=== PATIENT | female | born 1955 | race Caucasian/White ===

== ENCOUNTER → 2020-02-24 11:03 | Outpatient (REF) | payer MEDICARE, SELFPAY ==
--- NOTE | 2020-02-24 12:23 | ECG_ITS ---
Test Reason : PREPROC EXAM Blood Pressure : / mmHG Vent. Rate : 073 BPM Atrial Rate : 073 BPM P-R Int : 182 ms QRS Dur : 088 ms QT Int : 412 ms P-R-T Axes : 060 -41 041 degrees QTc Int : 453 ms Normal sinus rhythm Left anterior fascicular block Abnormal ECG No previous ECGs available Referred By: Thuan Mario Electronically Signed By:FABBY RODRIGUEZ MD
== END ==
LOC: HO.CARD 11:03
PROVIDERS: PCP Internal Medicine; Visit Provider Orthopaedic Surgery
DX: Z01.812 Encounter for preprocedural laboratory examination (principal); Z01.810 Encounter for preprocedural cardiovascular examination
CPT/HCPCS: 36415; 80048; 85025; 93005

== ENCOUNTER 2020-03-26 10:05 | Outpatient (REF) | payer MEDICARE, SELFPAY | END 2020-03-26 10:06 | disposition home or self-care (01) | LOC: HO.LAB 10:05 | PROVIDERS: PCP Internal Medicine; Visit Provider Physician Assistant | DX: Z01.818 Encounter for other preprocedural examination (principal); M17.11 Unilateral primary osteoarthritis, right knee | CPT/HCPCS: 99212 ==

== ENCOUNTER 2020-03-30 05:15 | Inpatient (IN) | payer MEDICARE, SELFPAY ==
[2020-03-15 11:08] VITALS: BMI 37.8
--- NOTE | 2020-03-16 08:36 | P.CONAN_ITS ---
Documented by User: Anya Harrisney 03/30/20 08:33 HPI - Anesthesia Eval Consult details Narrative: 64F for L TKA PCP cleared Reports ?rxn to anesthesia following colonoscopy in 2009. Pupils were slow to react to light post-op. Treated with prednisone. Resolved without further occur rence. Nurse navigator requesting information from [facility]. No anesthetic issues with subsequent surgeries Anesthetic record from [facility] 2010 reviewed. Patient received Sevo, Versed, Fentanyl, Lido, Propofol, Rocuronium, Dec/Zofran, Phenylephrine without issue. [facility] Past Medical History Medical History Arthritis Heart murmur History of anesthesia problem History of depression Hypertension Psoriasis Psoriatic arthritis Surgical History Surgical History History of arthroscopy of right shoulder Hx of section Hx of cholecystectomy Hx of laparoscopy History of Problems with Anesthesia: Yes (See HPI) Social History Social History Are you a primary gericare aide to a significant other at home: No Do you presently have visiting nurse or other home services: No Smoking Status: Never smoker Second Hand Smoke Exposure: No Use of substances other than those prescribed or required for medical reasons: No Have you been hit, kicked, punched, or otherwise hurt by someone within the past year? If so, by whom?: No Advance Directives: No Advance Directives Information Provided: No Advance Directives on File: No Recently lost weight without trying: No Current occupational status: retired Narrative Narrative: No recent illness. >4 mets. Activity only limited to pain. Meds Allergies Allergy/AdvReac Type Severity Reaction Status Date / Time penicillin Allergy Unknown Hives Uncoded 02/24/20 14:27 sulfa Allergy Unknown Hives Uncoded 02/24/20 14:27 Home Medications Medication Instructions Recorded Confirmed Type calcipotriene 1 applic TOPICAL BID 03/15/20 03/15/20 History etanercept [Enbrel SureClick] 50 mg SUBCUT 2XW 03/15/20 03/16/20 History hydrochlorothiazide 1 tab PO DAILY 03/15/20 03/15/20 History lisinopril 1 tab PO DAILY 03/15/20 03/15/20 History verapamil 2 cap PO BEDTIME 03/15/20 03/16/20 History Exam Exam Date and Time: March 16, 2020 0836 Height,Weight and Vital Signs: Height 5 ft 6 in Weight 106.141 kg Pertinent Lab Results Pertinent Lab Results: Laboratory Tests 02/24/20 02/24/20 12:30 12:30 WBC 6.9 Hgb 11.8 L Hct 37.7 Plt Count 404 H Sodium 137 Potassium 3.9 Chloride 100 Carbon Dioxide 25 BUN 13 Creatinine 0.75 Narrative Narrative: EKG 02/24/20: Normal sinus rhythm Left anterior fascicular block Airway Mallampati Class: III (Small mouth) TM Dist: >3cm Neck ROM: Full Loose/Missing/Broken Teeth: Yes (Left lower molar implant) Heart: RRR Lungs: CTAB Assessment and Plan Assessment Anesthesia Assessment: Anesthesia Plan Discussed (Nerve block with GA vs MAC based on PMHx) and PAT Visit Documented by User: Jose Dumont MD 03/30/20 09:08 [facility] Past Medical History Medical History Arthritis Heart murmur History of anesthesia problem History of depression Hypertension Psoriasis Psoriatic arthritis Surgical History Surgical History History of arthroscopy of right shoulder Hx of section Hx of cholecystectomy Hx of laparoscopy Social History Social History Are you a primary gericare aide to a significant other at home: No Do you presently have visiting nurse or other home services: No Smoking Status: Never smoker Second Hand Smoke Exposure: No Use of substances other than those prescribed or required for medical reasons: No Have you been hit, kicked, punched, or otherwise hurt by someone within the past year? If so, by whom?: No Advance Directives: No Advance Directives Information Provided: No Advance Directives on File: No Recently lost weight without trying: No Current occupational status: retired Meds Allergies Allergy/AdvReac Type Severity Reaction Status Date / Time penicillin Allergy Unknown Hives Uncoded 02/24/20 14:27 sulfa Allergy Unknown Hives Uncoded 02/24/20 14:27 Home Medications Medication Instructions Recorded Confirmed Type calcipotriene 1 applic TOPICAL BID 03/15/20 03/15/20 History etanercept [Enbrel SureClick] 50 mg SUBCUT 2XW 03/15/20 03/16/20 History hydrochlorothiazide 1 tab PO DAILY 03/15/20 03/15/20 History lisinopril 1 tab PO DAILY 03/15/20 03/15/20 History verapamil 2 cap PO BEDTIME 03/15/20 03/16/20 History Assessment and Plan Assessment Anesthesia Assessment: Anesthesia Plan Discussed and Chart Reviewed Final Anesthetic Review NPO: Yes ASA Class: III Final Preanesthetic Review: No Changes in Pt Med Stat, Meds/Allgs Chart Reviewed, Consent Obtained/Reviewed and Anes Risks/Benef Reviewed Patient Risk: Intermediate Procedure Risk: Low Anesthetic Plan Anesthetic Plan: MAC: and Regional Block Disposition: Standard PACU
[2020-03-16 13:19] VITALS: BMI 37.8
[2020-03-16 13:20] VITALS: BP 159/83; PULSE 80; RESP 20; O2SAT 100
[2020-03-16 15:44] LABS: MRSA Nasal PCR NEGATIVE (Negative); SA Nasal PCR NEGATIVE (Negative)
[2020-03-30] VITALS (13 sets, daily range): BP systolic 115–178; BP diastolic 54–74; PULSE 64–94; RESP 16–20; TEMP 36.3–36.9; O2SAT 96–100
[2020-03-30 06:13] LABS: COVID-19 Test Negative (Negative); IDNOW Serial# 9DD0AD1C
[2020-03-30] MEDS: Gabapentin 600 MG TABLET PO (06:49)
[2020-03-30] MEDS: Lactated Ringers 1,000 ML 100 ML IVCONT (07:06)
--- NOTE | 2020-03-30 07:33 | MHC.SHP ---
Pre-Procedural Eval Section A The patient is an INPATIENT: No Changes since office visit: Yes Cold of Flu in the past 2 weeks, Yes New Medical Problems and Yes Changes in Medication The History & Physical has been completed within 30 days and I have reviewed it.: Yes Section B Chief Complaint: LEFT KNEE ARTHROPLASTY Allergies: Allergies Allergy/AdvReac Type Severity Reaction Status Date / Time penicillin Allergy Unknown Hives Uncoded 02/24/20 14:27 sulfa Allergy Unknown Hives Uncoded 02/24/20 14:27 Plan Patient has been examined and remains a candidate for the planned procedure
--- NOTE | 2020-03-30 09:38 | PM.OP ---
Brief Operative Note Date of Service: 03/30/20 Pre-op diagnosis: left knee OA Post-op diagnosis: same Procedure: left TKA Implants: harsh triathalohanane 08/26/PS/29a Surgeon: Jamal Badillo MD Anesthesia: regional and spinal Estimated blood loss (mL): 100 Tourniquet time (min): 0 IV fluids (mL): 1,000 Urine output (mL): 0 Pathology: other Condition: stable Disposition: PACU
--- NOTE | 2020-03-30 10:07 | XR_ITS ---
EXAMINATION: XR KNEE, LEFT CLINICAL INFORMATION: Left knee replacement COMPARISON: Previous x-ray May 2019 TECHNIQUE: Two views of the left knee. FINDINGS: There is a new 3 component left knee replacement in satisfactory position. No fracture or dislocation is seen. There are postoperative changes of the soft tissues. XR/XR knee LT 2V IMPRESSION: Satisfactory appearance of left knee replacement.
--- NOTE | 2020-03-30 11:53 | PM.IMCN ---
History of Present Illness Data of Consult Service Date: 03/30/20 Primary Care Provider: Barbi Noble MD HPI Reason for consult: Medication management A 64 years old lady with PMH of psoriatic arthritis, hypertension and obesity who presented to the hospital for elective left knee arthroplasty. Surgery went well and the patient was seen in her room. She reports that she has been feeling okay recently with no reported medical problems. Blood pressure under good control. She was having problems from her knee which she 1 surgery for. Next [place]yme denies any fever, chills, chest pain or difficulty breathing. Review of Systems Review of Systems: No fever, chills or weakness No chest pain, palpitation No shortness of breath or coughing No abdominal pain, nausea or vomiting No urinary symptoms No any rash or wounds PMFSH Medical History Arthritis Heart murmur History of anesthesia problem History of depression Hypertension Psoriasis Psoriatic arthritis Surgical History History of arthroscopy of right shoulder Hx of section Hx of cholecystectomy Hx of laparoscopy Social History Are you a primary child day care provider to a significant other at home: No Do you presently have visiting nurse or other home services: No Smoking Status: Never smoker Second Hand Smoke Exposure: No Use of substances other than those prescribed or required for medical reasons: No Have you been hit, kicked, punched, or otherwise hurt by someone within the past year? If so, by whom?: No Advance Directives: No Advance Directives Information Provided: No Advance Directives on File: No Recently lost weight without trying: No Current occupational status: retired Meds Allergies Allergy/AdvReac Type Severity Reaction Status Date / Time penicillin Allergy Unknown Hives Uncoded 02/24/20 14:27 sulfa Allergy Unknown Hives Uncoded 02/24/20 14:27 Home Medications Medication Instructions Recorded Confirmed Type calcipotriene 1 applic TOPICAL BID 03/15/20 03/15/20 History etanercept [Enbrel SureClick] 50 mg SUBCUT 2XW 03/15/20 03/16/20 History hydrochlorothiazide 1 tab PO DAILY 03/15/20 03/15/20 History lisinopril 1 tab PO DAILY 03/15/20 03/15/20 History verapamil 2 cap PO BEDTIME 03/15/20 03/16/20 History Physical Exam Vital Signs and Narrative: Vital Signs: Last Vital Signs Temp 97.7 F 03/30/20 10:57 Pulse 73 03/30/20 10:57 Resp 20 03/30/20 10:57 BP 134/64 03/30/20 10:57 Pulse Ox 98 03/30/20 10:57 Body Mass Index 37.8 Constitutional : Alert, oriented, not in distress Neck : Normal inspection, Supple Cardiovascular : RRR, S1 S2, no lower extremity edema Respiratory : Good bilateral air entry, no crackles, wheezes or rhonchi Gastrointestinal: soft, lax, Normal bowel sounds, Non tender Skin : Warm/Dry, No rash, knee covered with dressing, no drainage noted Neurological : Alert & oriented x3, No focal deficit Results Labs Labs: Laboratory Results - last 24 hr 03/30/20 05:45 COVID-19 (ANKIT) Negative COVID-19 Clin Com See Note Imaging Radiologist's Impressions: Impressions Knee X-Ray 03/30/20 10:07 IMPRESSION: Satisfactory appearance of left knee replacement. Assessment and Plan (1) Unilateral primary osteoarthritis, left knee: Status: Acute (2) Unilateral primary osteoarthritis, right knee: Status: Acute A 64 years old lady with PMH of psoriatic arthritis, hypertension and obesity who presented to the hospital for elective left knee arthroplasty. Surgery went well and the patient was seen in her room. Left knee arthroplasty Treatment per orthopedic team To decide DVT PPX Pain management To use as needed oxycodone for moderate pain To use hydromorphone for severe pain started on long-acting OxyContin by surgical team Hypertension Start verapamil tonight Hold lisinopril and HCT for Psoriatic arthritis On embril, to hold for now DVT PPX per surgical team Thank you for the consult will continue to follow the patient with you.
[2020-03-30] MEDS: Dextrose 5 % and 0.45 % NaCl 1,000 ML 80 ML IVCONT (12:19)
[2020-03-30] MEDS: oxyCODONE HCl Immed Release 5 MG TABLET 10 MG PO ×3 (12:19→20:16)
[2020-03-30] MEDS: HYDROmorphone HCl 0.5 MG/0.5 ML SYRINGE 0.25 MG IVPUSH ×3 (13:46→21:43)
--- NOTE | 2020-03-30 14:50 | OP_ITS ---
SURGEON: Jamal Badillo MD INDICATIONS: This is a 64-year-old woman with osteoarthritis of the left knee, consented to undergo knee arthroplasty. PREOPERATIVE DIAGNOSIS: Left knee osteoarthritis. POSTOPERATIVE DIAGNOSIS: Left knee osteoarthritis. PROCEDURE PERFORMED: Left total knee arthroplasty. ESTIMATED BLOOD LOSS: 100 mL. COMPLICATIONS: None known. ANESTHESIA: Spinal and regional. ASSISTANTS: RODRIGUEZ Null. SPECIMENS: IMPLANTS USED: Kang Triathlon, 08/26/28 with a 16 mm PS. FLUIDS: 1 L. PROCEDURE IN DETAIL: The patient was brought to the operating room and placed supine on the operative table and prepped and draped in standard sterile fashion. Time-out was called to identify proper site, proper procedure, proper surgeon. IV antibiotics per weight was administered. I began by making a midline incision down to the retinaculum. A medial parapatellar arthrotomy was performed. Fat pad was resected and a small medial peel was performed. I placed my retractors, flexed up the knee, and translated the patella. She had a 10 degree flexion contracture. Therefore, I took an additional 2 mm off the distal femur after I had used Edwin's line to drill my intramedullary femoral guide and placed my distal femoral guide in 5 degrees of valgus. I then sized my femur, made my anterior, posterior, and chamfer cuts, protecting the soft tissues at all times. Given the extent of her contracture, I elected to sacrifice PCL and my box cut was made. I then turned my attention to tibia, where 2 mm was taken off the low side in line with the tibial crest. Extension block was placed. I was happy with my extension. Medial and lateral menisci were removed. Soft tissue was removed and I provisionally trialed and was happy with the motion. The undersurface of the patella was resurfaced and again I was happy with the range, stability, and tracking. She was in quite a bit of varus, so the tibial cut was significant, therefore, I trialed 13 and 16. I thought 16 was more stable. The tibial canal was then prepared, and the lug holes of the femur drilled and all instrumentation was removed. Copious irrigation was performed and I press-fit in the femur and tibia in standard fashion and the patella. I then re-trialed and was happiest with a 16PS insert. This was placed. Copious irrigation was performed and iodine soak with local TXA was applied. Layered closure was performed with dread on the skin. The patient was awakened from sedation and brought to recovery room in stable condition. There were no known complications. MD NINI Franks/JOSS / [id number]
[2020-03-30] MEDS: vancomycin HCL 1,000 MG in 0.9 % Sodium Chloride 250 ML 270 MG IV (18:14)
[2020-03-30] MEDS: oxyCODONE HCl ER 10 MG TAB.ER.12H PO (20:16)
[2020-03-30] MEDS: Acetaminophen 325 MG TABLET 650 MG PO (23:06)
[2020-03-31] VITALS (11 sets, daily range): BP systolic 107–190; BP diastolic 62–92; PULSE 83–104; RESP 16–20; TEMP 36.1–37.2; O2SAT 91–97; BMI 37.8
[2020-03-31] MEDS: oxyCODONE HCl Immed Release 5 MG TABLET 10 MG PO ×3 (00:15→08:54)
[2020-03-31] MEDS: HYDROmorphone HCl 0.5 MG/0.5 ML SYRINGE 0.25 MG IVPUSH ×3 (02:02→12:21)
[2020-03-31] MEDS: Dextrose 5 % and 0.45 % NaCl 1,000 ML 80 ML IVCONT (02:04)
--- NOTE | 2020-03-31 06:55 | PC.NURSE ---
pt's bp at 0000 was 181/90, other vitals stable, dr. nguyen aware. pt's bp at 0400 was 190/75, other vitals stable, dr. nguyen aware.
[2020-03-31 07:26] LABS: Basophils Percent Auto 0.1 % (0-2); Hematocrit 33.7 % (37-47); Hemoglobin 10.8 g/dl (12.0-16.0); Imm Gran Abs Auto 0.04 X10*3/uL (0.00-0.03); Imm Gran Pct Auto 0.3 % (0.0-0.4); Lymphocytes Absolute Auto 1.3 X10*3/uL (1.2-4.9); Lymphocytes Percent Auto 9.1 % (20-40); MANUAL DIFF FLAG SCAN; Mean Corpuscular Hemoglobin 27.1 pg (27.0-33.0); Mean Corpuscular Volume 84.5 fL (80-98); Mean Platelet Volume 8.9 fL (9.4-12.3); Monocytes Absolute Auto 1.6 X10*3/uL (0.1-1.2); Monocytes Percent Auto 11.2 % (2-11); Neutrophils Percent Auto 79.3 % (45-73); Platelet Count 407 X10*3/uL (160-400); Red Blood Count 3.99 X10*6/uL (4.20-5.50); Red Cell Distribution Width 13.2 % (11.0-16.0); SCAN SMEAR FLAG 1; White Blood Count 13.8 X10*3/uL (4.8-10.8)
--- NOTE | 2020-03-31 07:53 | P.PNOP_ITS ---
Subjective Subjective Date of Service: 03/31/20 Interval history: POD 1 s/p LT TKA No overnight events, resting in bed, has some discomfort. Denies cp, sob, dizziness Physical Exam Vital Signs: Vital Signs: Last Vital Signs Temp 96.9 F 03/31/20 07:22 Pulse 97 03/31/20 07:22 Resp 18 03/31/20 07:22 BP 183/91 H 03/31/20 07:22 Pulse Ox 95 03/31/20 07:22 Body Mass Index 37.8 Const: General: cooperative, healthy appearing and no acute distress Resp: Effort & Inspection: normal respiratory effort and able to speak in comp lete sentences Cardio: Rate: regular rate Peripheral pulses: Peripheral pulses 2+ throughout GI: Inspection: Yes normal to inspection Palpation (GI): Soft to palpation Skin: General skin exam: no rashes or lesions noted Extrem: Other: Left knee skin intact, no erythema mild edema, sensation i ntact, bandage intact Progress Note: A&P Assessment and plan (1) Status post total right knee replacement not using cement: Status: Acute Assessment and Plan: Continue pain mgmnt Begin lovenox for dvt ppx begin PT for LT TKA Dispo planning-Pending PT eval, pain mgmnt Fall Risk Details Current Medications: Current Medications Generic Name Dose Route Start Last Admin Trade Name Freq PRN Reason Stop Dose Admin Acetaminophen 650 mg 03/30/20 10:57 03/30/20 23:06 Acetaminophen 325 Mg Tablet PO 650 mg Q6H PRN Administration Pain, Mild (Pain Scale 1-3) Hydrochlorothiazide 25 mg 03/31/20 09:00 Hydrochlorothiazide 25 Mg Tablet PO DAILY ABRAM Protocol Hydromorphone HCl 0.25 mg 03/30/20 10:57 03/31/20 07:16 Hydromorphone Hcl 0.5 Mg/0.5 Ml Syringe IVPUSH 0.25 mg Q4H PRN Administration Pain, Severe (Pain Scale 7-10) Dextrose/Sodium Chloride 1,000 mls @ 80 mls/hr 03/30/20 10:57 03/31/20 02:04 D51/2ns IVCONT 80 mls/hr .[id number] ABRAM Administration Lisinopril 40 mg 03/31/20 09:00 Lisinopril 40 Mg Tablet PO DAILY ABRAM Protocol Naloxone HCl 0.2 mg 03/30/20 10:57 Naloxone Hcl 0.4 Mg/Ml Vial IVPUSH Q2M PRN Excessive sedation or RR < 8 Non-Formulary Medication 1 appl 03/30/20 21:00 Calcipotriene TOPICAL BID ABRAM Ondansetron HCl 4 mg 03/30/20 10:57 Ondansetron Hcl 4 Mg/2 Ml Vial IVPUSH Q8H PRN Nausea and Vomiting Oxycodone HCl 10 mg 03/30/20 10:57 03/31/20 04:14 Oxycodone Hcl Immed Release 5 Mg Tablet PO 10 mg Q4H PRN Administration Pain, Moderate (Pain Scale 4-6 Oxycodone HCl 10 mg 03/30/20 21:00 03/30/20 20:16 Oxycodone Hcl Er 10 Mg Tab.Er.12h PO 10 mg BID ABRAM Administration Senna 17.2 mg 03/30/20 10:57 Sennosides 8.6 Mg Tablet PO BEDTIME PRN Constipation Sodium Chloride 3 ml 03/30/20 16:00 03/31/20 07:19 0.9 % Sodium Chloride Flush 3 Ml Syringe IVFLUSH Not Given QSHIFT ABRAM Verapamil HCl 400 mg 03/30/20 21:00 03/30/20 20:17 Verapamil Hcl Sr 100 Mg Cap24h.Pct PO 400 mg BEDTIME ABRAM Administration Protocol Time Spent With Patient Time: Total time spent is greater than 50% in coordination of care (as documented) at patient's floor/unit and/or counseling patient: Time with patient: 15 - 24 minutes
[2020-03-31 07:55] LABS: Anion Gap 15 (12-20); Blood Urea Nitrogen 15 mg/dL (9-16); Calcium 8.2 mg/dL (8.4-10.2); Carbon Dioxide 23 mmol/L (22-29); Chloride 96 mmol/L (96-108); Creatinine Clr Calc Pharmacy 86.4; Estimated Glomerular Filt Rate > 60; Glucose Fasting 145 mg/dL (60-99); Potassium 4.2 mmol/l (3.3-5.1); Sodium 130 mmol/L (135-145)
[2020-03-31] MEDS: hydroCHLOROthiazide 25 MG TABLET PO (07:59)
[2020-03-31] MEDS: oxyCODONE HCl ER 10 MG TAB.ER.12H PO ×2 (08:00→20:18)
[2020-03-31] MEDS: lisinopriL 40 MG TABLET PO (08:01)
[2020-03-31] MEDS: ondansetron HCL 4 MG/2 ML VIAL IVPUSH (08:52)
[2020-03-31] MEDS: Enoxaparin Sodium 40 MG/0.4 ML SYRINGE SUBCUT (08:54)
[2020-03-31 09:02] LABS: SLIDE REVIEW VERIFIED
--- NOTE | 2020-03-31 10:38 | MHC.CM.PN ---
PT ADMITTED S/P TOTAL LEFT HIP ARTHROPLASTY, PT DROWSY BUT ALERT AND ORIENTED, PT IN GOOD SPIRITS, PT REPORTS NO HX OF VNA SERVICES, PT OFFERED LIST OF VNAS HOWEVER PT HAD NO PREFERENCE AND OK WITH THIS RN SENDING [facility]FERRAL TO [facility], PT CONFIRMS PCP IS SHRUTHI AND REPORTS HCP IS NATY GAN AT [phone], COPY REQUESTED FOR FILE, PT VOICES NO ADDITIONAL CONCERNS AT THIS TIME. DISCHARGE PLAN IS HOME W/NO SERVICES VS HOME W/VNA.
--- NOTE | 2020-03-31 10:57 | P.PNIM_ITS ---
Subjective Subjective Date of Service: 03/31/20 Interval History: the patient was seen and evaluated this morning Laying in bed, feels comfortable at complaining of pain in her knee Had difficulty sleeping last night and feels sleepy this morning Denies any fever, chills or shortness of breath No reported other overnight events. Systemic review: No fever, chills or weakness No chest pain, palpitation No shortness of breath or coughing No abdominal pain, nausea or vomiting No urinary symptoms No any rash or wounds Physical Exam 2 Vital Signs: Vital Signs: Last Vital Signs Temp 96.9 F 03/31/20 07:22 Pulse 97 03/31/20 08:50 Resp 18 03/31/20 07:22 BP 183/91 H 03/31/20 08:50 Pulse Ox 95 03/31/20 08:50 Body Mass Index 37.8 Constitutional : Alert, oriented, not in distress Neck : Normal inspection, Supple Cardiovascular : RRR, S1 S2, no lower extremity edema Respiratory : Good bilateral air entry, no crackles, wheezes or rhonchi Gastrointestinal: soft, lax, Normal bowel sounds, Non tender Skin : Warm/Dry, No rash Neurological : Alert & oriented x3, No focal deficit Objective Data Current Medications Generic Name Dose Route Start Last Admin Trade Name Freq PRN Reason Stop Dose Admin Acetaminophen 650 mg 03/30/20 10:57 03/30/20 23:06 Acetaminophen 325 Mg Tablet PO 650 mg Q6H PRN Administration Pain, Mild (Pain Scale 1-3) Enoxaparin Sodium 40 mg 03/31/20 10:00 03/31/20 08:54 Enoxaparin Sodium 40 Mg/0.4 Ml Syringe SUBCUT 40 mg Q24H ABRAM Administration Hydrochlorothiazide 25 mg 03/31/20 09:00 03/31/20 07:59 Hydrochlorothiazide 25 Mg Tablet PO 25 mg DAILY ABRAM Administration Protocol Hydromorphone HCl 0.25 mg 03/30/20 10:57 03/31/20 07:16 Hydromorphone Hcl 0.5 Mg/0.5 Ml Syringe IVPUSH 0.25 mg Q4H PRN Administration Pain, Severe (Pain Scale 7-10) Lisinopril 40 mg 03/31/20 09:00 03/31/20 08:01 Lisinopril 40 Mg Tablet PO 40 mg DAILY ABRAM Administration Protocol Naloxone HCl 0.2 mg 03/30/20 10:57 Naloxone Hcl 0.4 Mg/Ml Vial IVPUSH Q2M PRN Excessive sedation or RR < 8 Non-Formulary Medication 1 appl 03/30/20 21:00 Calcipotriene TOPICAL BID ABRAM Ondansetron HCl 4 mg 03/30/20 10:57 03/31/20 08:52 Ondansetron Hcl 4 Mg/2 Ml Vial IVPUSH 4 mg Q8H PRN Administration Nausea and Vomiting Oxycodone HCl 10 mg 03/30/20 10:57 03/31/20 08:54 Oxycodone Hcl Immed Release 5 Mg Tablet PO 10 mg Q4H PRN Administration Pain, Moderate (Pain Scale 4-6 Oxycodone HCl 10 mg 03/30/20 21:00 03/31/20 08:00 Oxycodone Hcl Er 10 Mg Tab.Er.12h PO 10 mg BID ABRAM Administration Senna 17.2 mg 03/30/20 10:57 Sennosides 8.6 Mg Tablet PO BEDTIME PRN Constipation Sodium Chloride 3 ml 03/30/20 16:00 03/31/20 07:19 0.9 % Sodium Chloride Flush 3 Ml Syringe IVFLUSH Not Given QSHIFT ABRAM Verapamil HCl 400 mg 03/30/20 21:00 03/30/20 20:17 Verapamil Hcl Sr 100 Mg Cap24h.Pct PO 400 mg BEDTIME ABRAM Administration Protocol Labs CBC & Chem 7: 03/31/20 06:44 03/31/20 06:44 Assessment and Plan (1) Unilateral primary osteoarthritis, left knee: Status: Acute (2) Hypertension: Status: Acute Assessment and Plan: A 64 years old lady with PMH of psoriatic arthritis, hypertension and obesity who presented to the hospital for elective left knee arthroplasty. Surgery went well and the patient was seen in her room. Left knee arthroplasty Treatment per orthopedic team Started physical therapy today Discontinue IV fluids Pain management Continue as needed oxycodone for moderate pain Continue hydromorphone for severe pain on long-acting OxyContin by surgical team Hypertension Continue verapamil Start lisinopril and HCT Psoriatic arthritis On embril, to hold for now DVT PPX Lovenox Thank you for the consult will continue to follow the patient with you as needed
--- NOTE | 2020-03-31 12:31 | HO.POSTANES ---
Post Anesthesia Evaluation Post Anesthesia Evaluation Vital Signs: Vital Signs Temp Pulse Resp BP Pulse Ox 03/31/20 11:44 98.9 F 84 18 165/78 H 91 L 03/31/20 08:50 97 183/91 H 95 03/31/20 07:22 96.9 F 97 18 183/91 H 95 03/31/20 03:44 97.6 F 100 16 190/75 H 94 03/31/20 02:02 18 Anesthesia: Spinal and Nerve Block Mental Status: Awake Pain Control: Satisfactory Nausea/Vomiting: None Hydration: Adequate Anesthesia-Related Issues: No Anes. Related Issues
[2020-03-31] MEDS: 0.9 % Sodium Chloride Flush 3 ML SYRINGE IVFLUSH ×2 (13:31→20:18)
[2020-04-01] VITALS (10 sets, daily range): BP systolic 104–132; BP diastolic 51–63; PULSE 75–89; RESP 18–19; TEMP 36.5–37.1; O2SAT 93–97
[2020-04-01 06:54] LABS: Basophils Percent Auto 0.1 % (0-2); Hematocrit 29.1 % (37-47); Hemoglobin 9.4 g/dl (12.0-16.0); Imm Gran Abs Auto 0.06 X10*3/uL (0.00-0.03); Imm Gran Pct Auto 0.4 % (0.0-0.4); Lymphocytes Absolute Auto 1.5 X10*3/uL (1.2-4.9); Lymphocytes Percent Auto 8.8 % (20-40); MANUAL DIFF FLAG SCAN; Mean Corpuscular HGB Conc 32.3 g/dl (31.0-35.0); Mean Corpuscular Hemoglobin 27.2 pg (27.0-33.0); Mean Corpuscular Volume 84.3 fL (80-98); Monocytes Absolute Auto 2.3 X10*3/uL (0.1-1.2); Neutrophils Absolute Auto 12.8 X10*3/uL (2.0-8.3); Neutrophils Percent Auto 76.7 % (45-73); Platelet Count 372 X10*3/uL (160-400); Red Blood Count 3.45 X10*6/uL (4.20-5.50); Red Cell Distribution Width 13.5 % (11.0-16.0); SCAN SMEAR FLAG 1; White Blood Count 16.7 X10*3/uL (4.8-10.8)
[2020-04-01 07:24] LABS: Anion Gap 17 (12-20); Blood Urea Nitrogen 30 mg/dL (9-16); Calcium 8.5 mg/dL (8.4-10.2); Carbon Dioxide 23 mmol/L (22-29); Chloride 90 mmol/L (96-108); Creatinine Clr Calc Pharmacy 21.3; Estimated Glomerular Filt Rate 14; Glucose Fasting 112 mg/dL (60-99); Potassium 4.3 mmol/l (3.3-5.1); Sodium 126 mmol/L (135-145)
[2020-04-01 07:36] LABS: SLIDE REVIEW VERIFIED
[2020-04-01] MEDS: oxyCODONE HCl ER 10 MG TAB.ER.12H PO (08:46)
[2020-04-01] MEDS: Enoxaparin Sodium 40 MG/0.4 ML SYRINGE SUBCUT (08:46)
[2020-04-01] MEDS: 0.9 % Sodium Chloride Flush 3 ML SYRINGE IVFLUSH ×3 (08:47→20:34)
[2020-04-01] MEDS: ondansetron HCL 4 MG/2 ML VIAL IVPUSH (09:21)
--- NOTE | 2020-04-01 14:19 | MHC.CM.PN ---
MET W/PT VERIFY LOVENOX TEACHING AND TO VERIFY SHE IS OK WITH GIVING HERSELF INJECTIONS ON DAYS WHEN VNA IS NOT THERE, PT REPORTS SHE IS FINE W/THIS, NO PLAN FOR D/C TODAY, CONT'D PLAN FOR FAMILY TO TRANSPORT HOME.
--- NOTE | 2020-04-01 20:20 | P.PNOP_ITS ---
Subjective Subjective Date of Service: 04/01/20 Interval history: POD 2 s/p LT TKa no overnight events, resting in bed. She worked with PT yesterday and did well. Today she is a bit tired and having difficulty managing the pain. Denies chest pain, dizziness, sob. Physical Exam Vital Signs: Vital Signs: Last Vital Signs Temp 98.6 F 04/01/20 20:00 Pulse 82 04/01/20 20:00 Resp 18 04/01/20 20:00 BP 132/57 L 04/01/20 20:00 Pulse Ox 93 04/01/20 20:00 Body Mass Index 37.8 Const: General: cooperative, healthy appearing and no acute distress Resp: Effort & Inspection: normal respiratory effort and able to speak in complete sentences Cardio: Rate: regular rate Peripheral pulses: Peripheral pulses 2+ throughout GI: Inspection: Yes normal to inspection Palpation (GI): Soft to palpation Skin: General skin exam: no rashes or lesions noted Extrem: Other: left knee incision clean, dry and intact. No erythema mild edema sensation intact. Progress Note: A&P Assessment and plan (1) Status post total right knee replacement not using cement: Status: Acute Assessment and Plan: Continue pain mgmnt continue lovenox for dvt ppx cont PT for LT TKA Dispo planning-Pending PT eval, pain mgmnt Fall Risk Details Current Medications: Current Medications Generic Name Dose Route Start Last Admin Trade Name Freq PRN Reason Stop Dose Admin Acetaminophen 650 mg 03/30/20 10:57 03/30/20 23:06 Acetaminophen 325 Mg Tablet PO 650 mg Q6H PRN Administration Pain, Mild (Pain Scale 1-3) Enoxaparin Sodium 40 mg 03/31/20 10:00 04/01/20 08:46 Enoxaparin Sodium 40 Mg/0.4 Ml Syringe SUBCUT 40 mg Q24H ABRAM Administration Hydrochlorothiazide 25 mg 03/31/20 09:00 04/01/20 08:37 Hydrochlorothiazide 25 Mg Tablet PO Not Given DAILY ABRAM Protocol Hydromorphone HCl 0.25 mg 03/30/20 10:57 03/31/20 12:21 Hydromorphone Hcl 0.5 Mg/0.5 Ml Syringe IVPUSH 0.25 mg Q4H PRN Administration Pain, Severe (Pain Scale 7-10) Lisinopril 40 mg 03/31/20 09:00 04/01/20 08:37 Lisinopril 40 Mg Tablet PO Not Given DAILY [facility] Protocol Naloxone HCl 0.2 mg 03/30/20 10:57 Naloxone Hcl 0.4 Mg/Ml Vial IVPUSH Q2M PRN Excessive sedation or RR < 8 Non-Formulary Medication 1 appl 03/30/20 21:00 Calcipotriene TOPICAL BID ABRAM Ondansetron HCl 4 mg 03/30/20 10:57 04/01/20 09:21 Ondansetron Hcl 4 Mg/2 Ml Vial IVPUSH 4 mg Q8H PRN Administration Nausea and Vomiting Oxycodone HCl 10 mg 03/30/20 10:57 03/31/20 08:54 Oxycodone Hcl Immed Release 5 Mg Tablet PO 10 mg Q4H PRN Administration Pain, Moderate (Pain Scale 4-6 Senna 17.2 mg 03/30/20 10:57 Sennosides 8.6 Mg Tablet PO BEDTIME PRN Constipation Sodium Chloride 3 ml 03/30/20 16:00 04/01/20 16:18 0.9 % Sodium Chloride Flush 3 Ml Syringe IVFLUSH 3 ml QSHIFT ABRAM Administration Verapamil HCl 400 mg 03/30/20 21:00 03/31/20 20:18 Verapamil Hcl Sr 100 Mg Cap24h.Pct PO 400 mg BEDTIME ABRAM Administration Protocol Time Spent With Patient Time: Total time spent is greater than 50% in coordination of care (as documented) at patient's floor/unit and/or counseling patient: Time with patient: 15 - 24 minutes
[2020-04-01] MEDS: Acetaminophen 325 MG TABLET 650 MG PO (20:32)
[2020-04-02] VITALS (8 sets, daily range): BP systolic 105–126; BP diastolic 50–73; PULSE 72–86; RESP 17–18; TEMP 36.1–36.7; O2SAT 95–98
[2020-04-02 06:35] LABS: Basophils Percent Auto 0.1 % (0-2); Eosinophils Percent Auto 0.1 % (0-4); Hematocrit 27.2 % (37-47); Imm Gran Abs Auto 0.06 X10*3/uL (0.00-0.03); Imm Gran Pct Auto 0.4 % (0.0-0.4); Lymphocytes Absolute Auto 1.4 X10*3/uL (1.2-4.9); Lymphocytes Percent Auto 8.5 % (20-40); MANUAL DIFF FLAG SCAN; Mean Corpuscular HGB Conc 33.1 g/dl (31.0-35.0); Mean Corpuscular Hemoglobin 27.1 pg (27.0-33.0); Mean Corpuscular Volume 81.9 fL (80-98); Mean Platelet Volume 9.1 fL (9.4-12.3); Monocytes Absolute Auto 1.5 X10*3/uL (0.1-1.2); Monocytes Percent Auto 9.4 % (2-11); Neutrophils Absolute Auto 13.2 X10*3/uL (2.0-8.3); Neutrophils Percent Auto 81.5 % (45-73); Platelet Count 369 X10*3/uL (160-400); Red Blood Count 3.32 X10*6/uL (4.20-5.50); Red Cell Distribution Width 13.2 % (11.0-16.0); SCAN SMEAR FLAG 1; White Blood Count 16.1 X10*3/uL (4.8-10.8)
[2020-04-02 07:32] LABS: Anion Gap 17 (12-20); Blood Urea Nitrogen 49 mg/dL (9-16); Calcium 8.3 mg/dL (8.4-10.2); Carbon Dioxide 23 mmol/L (22-29); Chloride 87 mmol/L (96-108); Creatinine Clr Calc Pharmacy 16.8; Estimated Glomerular Filt Rate 11; Glucose Fasting 105 mg/dL (60-99); Potassium 3.9 mmol/l (3.3-5.1); Sodium 123 mmol/L (135-145)
[2020-04-02 07:55] LABS: SLIDE REVIEW VERIFIED
--- NOTE | 2020-04-02 08:10 | PM.PNORT ---
Subjective Subjective Date of Service: 04/02/20 Principal diagnosis: Postop day 3 status post left total knee arthroplasty Interval history: No overnight events She is more awake today and feeling better. Denies chest pain or dizziness. No shortness of breath. She is doing well with physical therapy. Physical Exam Vital Signs: Vital Signs: Last Vital Signs Temp 96.9 F 04/02/20 07:23 Pulse 72 04/02/20 07:23 Resp 18 04/02/20 07:23 BP 126/52 L 04/02/20 07:23 Pulse Ox 97 04/02/20 07:23 Body Mass Index 37.8 Const: General: cooperative, healthy appearing and no acute distress Resp: Effort & Inspection: normal respiratory effort and able to speak in complete sentences Cardio: Rate: regular rate Peripheral pulses: Peripheral pulses 2+ throughout GI: Inspection: Yes normal to inspection Palpation (GI): Soft to palpation Skin: General skin exam: no rashes or lesions noted Extrem: Other: Left knee incision clean dry and intact. No erythema mild swelling. Calf supple nontender. Range of motion 0 to 90 degrees. Progress Note: A&P Assessment and plan (1) Status post total right knee replacement not using cement: Status: Acute Assessment and Plan: Continue pain mgmnt continue dvt ppx continue PT for LT TKA Dispo planning-pending Nephrology consult (2) Creatinine elevation: Status: Acute Assessment and Plan: Medicine following Nephrology consult Fall Risk Details Current Medications: Current Medications Generic Name Dose Route Start Last Admin Trade Name Freq PRN Reason Stop Dose Admin Acetaminophen 650 mg 03/30/20 10:57 04/01/20 20:32 Acetaminophen 325 Mg Tablet PO 650 mg Q6H PRN Administration Pain, Mild (Pain Scale 1-3) Enoxaparin Sodium 40 mg 03/31/20 10:00 04/01/20 08:46 Enoxaparin Sodium 40 Mg/0.4 Ml Syringe SUBCUT 40 mg Q24H ABRAM Administration Hydromorphone HCl 0.25 mg 03/30/20 10:57 03/31/20 12:21 Hydromorphone Hcl 0.5 Mg/0.5 Ml Syringe IVPUSH 0.25 mg Q4H PRN Administration Pain, Severe (Pain Scale 7-10) Sodium Chloride 1,000 mls @ 100 mls/hr 04/02/20 08:00 Ns IVCONT .Q10H ABRAM Naloxone HCl 0.2 mg 03/30/20 10:57 Naloxone Hcl 0.4 Mg/Ml Vial IVPUSH Q2M PRN Excessive sedation or RR < 8 Non-Formulary Medication 1 appl 03/30/20 21:00 Calcipotriene TOPICAL BID ABRAM Ondansetron HCl 4 mg 03/30/20 10:57 04/01/20 09:21 Ondansetron Hcl 4 Mg/2 Ml Vial IVPUSH 4 mg Q8H PRN Administration Nausea and Vomiting Oxycodone HCl 10 mg 03/30/20 10:57 03/31/20 08:54 Oxycodone Hcl Immed Release 5 Mg Tablet PO 10 mg Q4H PRN Administration Pain, Moderate (Pain Scale 4-6 Senna 17.2 mg 03/30/20 10:57 Sennosides 8.6 Mg Tablet PO BEDTIME PRN Constipation Sodium Chloride 3 ml 03/30/20 16:00 04/01/20 20:34 0.9 % Sodium Chloride Flush 3 Ml Syringe IVFLUSH 3 ml QSHIFT ABRAM Administration Verapamil HCl 400 mg 03/30/20 21:00 04/01/20 20:32 Verapamil Hcl Sr 100 Mg Cap24h.Pct PO 400 mg BEDTIME ABRAM Administration Protocol Time Spent With Patient Time: Total time spent is greater than 50% in coordination of care (as documented) at patient's floor/unit and/or counseling patient: Time with patient: 15 - 24 minutes
--- NOTE | 2020-04-02 08:16 | PC.NURSE ---
Addendum entered by Denisa Garcia RN 04/02/20 09:30: MD order mendez, mendez placed, urine samples ordered, will collect. Original Note: Pt critical creatinine 4.04, RODRIGUEZ valladares and DR landrum notified. BUN up from 30-49 and na down from 126-123. 0.9 sodium chloride ordered. Nephrology consult placed. Will continue to monitor labs.
[2020-04-02] MEDS: 0.9 % Sodium Chloride 1,000 ML 100 ML IVCONT ×2 (08:21→17:50)
[2020-04-02] MEDS: 0.9 % Sodium Chloride Flush 3 ML SYRINGE IVFLUSH ×2 (08:32→22:06)
[2020-04-02 08:41] LABS: Osmolality, Serum 265 mosm/kg (281-305)
--- NOTE | 2020-04-02 08:52 | PM.PNNEP ---
Subjective Subjective Date of Service: 04/02/20 Principal diagnosis: Postop day 3 status post left total knee arthroplasty Interval history: Physical Exam Vital Signs: Vital Signs: Last Vital Signs Temp 96.9 F 04/02/20 07:23 Pulse 72 04/02/20 07:23 Resp 18 04/02/20 07:23 BP 126/52 L 04/02/20 07:23 Pulse Ox 97 04/02/20 07:23 Body Mass Index 37.8 Objective Data Labs CBC & Chem 7: 04/02/20 06:08 04/02/20 12:32 Labs: Laboratory Results - last 24 hr 04/02/20 04/02/20 04/02/20 06:08 06:08 06:18 WBC 16.1 H RBC 3.32 L Hgb 9.0 L Hct 27.2 L MCV 81.9 MCH 27.1 MCHC 33.1 RDW 13.2 Plt Count 369 MPV 9.1 L Immature Gran % (Auto) 0.4 Neut % (Auto) 81.5 H Lymph % (Auto) 8.5 L [place] % (Auto) 9.4 Eos % (Auto) 0.1 Baso % (Auto) 0.1 Lymph # (Auto) 1.4 [place] # (Auto) 1.5 H Eos # (Auto) 0.0 Baso # (Auto) 0.0 Abs Immat Gran (auto) 0.06 H Absolute Neuts (auto) 13.2 H Absolute Nucleated RBC 0.000 Nucleated RBC % (auto) 0.0 Smear Tech's Comments VERIFIED Sodium 123 L Potassium 3.9 Chloride 87 L Carbon Dioxide 23 Anion Gap 17 BUN 49 H D Creatinine 4.04 H* Estim Creat Clear Calc 16.8 Estimated GFR 11 Fasting Glucose 105 H Osmolality 265 L Calcium 8.3 L Assessment & Plan Assessment and plan (1) MAMIE (acute kidney injury): Status: Acute
[2020-04-02] MEDS: Enoxaparin Sodium 40 MG/0.4 ML SYRINGE SUBCUT (09:24)
[2020-04-02 10:33] LABS: Creatinine Urine 178.31 mg/dL; Potassium Urine Random 41.8 mmol/l; Sodium Urine Random < 20.0 mmol/L
[2020-04-02 11:06] LABS: Osmolality Urine 367 mosm/kg (373-1093)
[2020-04-02 12:25] LABS: EOS Counted 0 CELLS; EOS QC POS YES; EOS Stain Quality OK YES; WBC, Counted 10 CELLS
[2020-04-02 13:46] LABS: Osmolality, Serum 272 mosm/kg (281-305)
[2020-04-02 13:59] LABS: Anion Gap 16 (12-20); Blood Urea Nitrogen 47 mg/dL (9-16); Calcium 8.3 mg/dL (8.4-10.2); Carbon Dioxide 23 mmol/L (22-29); Chloride 88 mmol/L (96-108); Creatinine Clr Calc Pharmacy 22.4; Estimated Glomerular Filt Rate 15; Glucose Random 107 mg/dL (60-115); Sodium 123 mmol/L (135-145)
[2020-04-02] MEDS: Magnesium Hydrox/Alum Hydrox 30 ML ORAL.SUSP PO (14:03)
--- NOTE | 2020-04-02 15:19 | MHC.CM.PN ---
IMM DONE 04/02/20 AT 1515, DISCHARGE PLAN- STR vs HOME W/HVNA/PT. IF DISCHARGING OVER WEEKEND PT IS ACCEPTED BY [facility] FOR SUNDAY, THEIR [facility] #[phone], [facility] DR. MARROQUIN WILL ORDER COVID TEST FOR TOMORROW. PT WAS ALSO ACCEPTED BY [facility] AND ARE FOLLOWING PT BUT DONT HAVE BED. PER [facility]STRUM IS COVERING ORTHO THIS WEEKEND. INITIALLY PLAN WAS D/C HOME W/HVNA AND WAS ACCEPTED, HOWEVER TODAY HER HYPONATREMIA WORSENED AND WAS DX W/MAMIE WITH ELEVATED BN AND CR OF 4.04
--- NOTE | 2020-04-02 15:45 | HO.PM.IMPN ---
Subjective Subjective Date of Service: 04/02/20 Interval History: the patient was seen and evaluated this morning Laying in bed, feels comfortable Molina catheter in place, has dark urine Denies any fever, chills or shortness of breath No reported other overnight events. Systemic review: No fever, chills or weakness No chest pain, palpitation No shortness of breath or coughing No abdominal pain, nausea or vomiting No urinary symptoms No any rash or wounds Physical Exam Vital Signs: Vital Signs: Last Vital Signs Temp 98.0 F 04/02/20 11:03 Pulse 77 04/02/20 13:49 Resp 17 04/02/20 11:03 BP 105/50 L 04/02/20 13:49 Pulse Ox 98 04/02/20 13:49 Body Mass Index 37.8 Constitutional : Alert, oriented, not in distress Neck : Normal inspection, Supple Cardiovascular : RRR, S1 S2, no lower extremity edema Respiratory : Good bilateral air entry, no crackles, wheezes or rhonchi Gastrointestinal: soft, lax, Normal bowel sounds, Non tender Skin : Warm/Dry, No rash Neurological : Alert & oriented x3, No focal deficit Objective Data Current Medications Generic Name Dose Route Start Last Admin Trade Name Freq PRN Reason Stop Dose Admin Acetaminophen 650 mg 03/30/20 10:57 04/01/20 20:32 Acetaminophen 325 Mg Tablet PO 650 mg Q6H PRN Administration Pain, Mild (Pain Scale 1-3) Al Hydroxide/Mg Hydroxide 30 ml 04/02/20 11:46 04/02/20 14:03 Magnesium Hydrox/Alum Hydrox 30 Ml Oral.Susp PO 30 ml Q6H PRN Administration Heartburn Enoxaparin Sodium 40 mg 03/31/20 10:00 04/02/20 09:24 Enoxaparin Sodium 40 Mg/0.4 Ml Syringe SUBCUT 40 mg Q24H ABRAM Administration Hydromorphone HCl 0.25 mg 03/30/20 10:57 03/31/20 12:21 Hydromorphone Hcl 0.5 Mg/0.5 Ml Syringe IVPUSH 0.25 mg Q4H PRN Administration Pain, Severe (Pain Scale 7-10) Sodium Chloride 1,000 mls @ 100 mls/hr 04/02/20 08:00 04/02/20 08:21 Ns IVCONT 100 mls/hr .Q10H ABRAM Administration Naloxone HCl 0.2 mg 03/30/20 10:57 Naloxone Hcl 0.4 Mg/Ml Vial IVPUSH Q2M PRN Excessive sedation or RR < 8 Non-Formulary Medication 1 appl 03/30/20 21:00 Calcipotriene TOPICAL BID ABRAM Ondansetron HCl 4 mg 03/30/20 10:57 04/01/20 09:21 Ondansetron Hcl 4 Mg/2 Ml Vial IVPUSH 4 mg Q8H PRN Administration Nausea and Vomiting Oxycodone HCl 10 mg 03/30/20 10:57 03/31/20 08:54 Oxycodone Hcl Immed Release 5 Mg Tablet PO 10 mg Q4H PRN Administration Pain, Moderate (Pain Scale 4-6 Senna 17.2 mg 03/30/20 10:57 Sennosides 8.6 Mg Tablet PO BEDTIME PRN Constipation Sodium Chloride 3 ml 03/30/20 16:00 04/02/20 15:07 0.9 % Sodium Chloride Flush 3 Ml Syringe IVFLUSH Not Given QSHIFT ABRAM Verapamil HCl 400 mg 03/30/20 21:00 04/01/20 20:32 Verapamil Hcl Sr 100 Mg Cap24h.Pct PO 400 mg BEDTIME ABRAM Administration Protocol Labs CBC & Chem 7: 04/02/20 06:08 04/02/20 12:32 Assessment and Plan (1) MAMIE (acute kidney injury): Status: Acute (2) Creatinine elevation: Status: Acute (3) Status post total right knee replacement not using cement: Status: Acute (4) Hypertension: Status: Acute (5) Unilateral primary osteoarthritis, left knee: Status: Acute Assessment and Plan: A 64 years old lady with PMH of psoriatic arthritis, hypertension and obesity who presented to the hospital for elective left knee arthroplasty. Surgery went well and the patient was seen in her room. Acute kidney injury Likely secondary to hypotensive event and medications Hold hydrochlorothiazide and lisinopril Urinalysis and electrolytes Start IV fluid Nephrology input appreciated Hyponatremia Sodium dropped to 123, no neurological symptoms Secondary to kidney injury Started on IV fluid Monitor BMP, goal of 130 today Left knee arthroplasty Treatment per orthopedic team Pain management Continue as needed oxycodone for moderate pain Continue hydromorphone for severe pain Hypertension Continue verapamil Discontinue lisinopril and HCT Psoriatic arthritis On embril, to hold for now DVT PPX Heparin Thank you for the consult will continue to follow the patient with you
[2020-04-02 17:19] LABS: Total Protein Urine Random 40 mg/dL (<12)
[2020-04-02] MEDS: ondansetron HCL 4 MG/2 ML VIAL IVPUSH (17:50)
--- NOTE | 2020-04-02 18:56 | CONS_ITS ---
DATE OF SERVICE: 04/02/2020 REASON FOR CONSULTATION: I was called to see this patient to assist in the management of acute kidney injury. HISTORY OF PRESENT ILLNESS: To summarize, Stephanie is a pleasant 64-year-old woman with a history of hypertension, psoriatic arthritis, and obesity. She underwent an elective left knee arthroplasty. At the time of admission, she had a baseline serum creatinine of 0.79 mg/dL on March 31, however, on April 01, the serum creatinine bumped up to 3.21 and as of today, creatinine was 4.04 and hence this consultation. Initially, she was hypertensive with systolic blood pressure between 160 and 180 mmHg. She did have episodes of relatively low blood pressure with a systolic blood pressure in the low 100s. She was on both lisinopril 40 mg along with hydrochlorothiazide for control of blood pressure. At the time of admission, serum sodium was 130, which has in fact decreased to 123 millimoles. At present, she is nonoliguric. She did have some nausea, which has improved. No shortness of breath. No fever. No rash. She has not had any NSAIDs during this admission. PAST MEDICAL HISTORY: Ongoing medical problems include history of hypertension, psoriatic arthritis, obesity, depression. PAST SURGICAL HISTORY: Include arthroscopy of right shoulder, section, cholecystectomy and laparotomy. SOCIAL HISTORY: No history of any smoking. No alcohol abuse or any drug abuse. REVIEW OF SYSTEMS: She had some difficulty with urine earlier on. No hematuria. No shortness of breath. No cough. She has some nausea, which has improved. No vomiting. No fever. No weight loss. No rash. All other systems were reviewed and negative. PHYSICAL EXAMINATION: GENERAL: Stephanie is a 64-year-old woman. She is comfortable, not in any distress. VITAL SIGNS: Blood pressure was 126/52, pulse 72, temperature 96.9, the lowest documented reading was 109/63. NECK: Supple. No JVD. HEENT: Mucosa is dry. LUNGS: Air entry equal. No rales. HEART: S1 and S2 heard. No gallop. No rub. ABDOMEN: Soft and nontender. EXTREMITIES: No significant edema. No rash. No clubbing. LABORATORY DATA: Sodium 123, potassium 3.9, CO2 of 23, BUN 14, creatinine 4.04, calcium 8.3. Hemoglobin 9.0, WBC 16.1, platelets 369. IMPRESSION: 64-year-old woman with obesity and hypertension, who underwent a knee arthroplasty, has sustained acute kidney injury postoperatively. 1. The differential diagnosis of acute kidney injury includes hypoperfusion from the continued use of JAZMYNE inhibitor and hydrochlorothiazide and hypotension. However, she could have progress to ischemic ATN. Obstructive uropathy has to be ruled out in this woman. There is no reason to believe she has any active glomerular and interstitial disease at this time. 2. Hyponatremia, most likely due to the use of hydrochlorothiazide. She may have underlying SIADH. RECOMMENDATIONS: My recommendation would include to obtain a spot urine for sodium, creatinine, osmolality. Check serum osmolality. I agree with stopping lisinopril and hydrochlorothiazide. Avoid hypotension and nephrotoxic agents including NSAIDs. We will maintain systolic blood pressure more than 100 mmHg to maintain adequate renal perfusion. Watch renal output closely. If the urine output is inadequate, I would certainly obtain renal ultrasonogram to rule out hydronephrosis and urinary retention. At the present time, there is no indication for dialysis. We will follow her closely with the team. Godfrey Diez MD BPA/MODL / [id number]
[2020-04-03] VITALS (8 sets, daily range): BP systolic 134–175; BP diastolic 52–71; PULSE 79–98; RESP 18–20; TEMP 36.6–36.8; O2SAT 93–98
[2020-04-03] MEDS: 0.9 % Sodium Chloride 1,000 ML 100 ML IVCONT (02:32)
[2020-04-03 07:18] LABS: MANUAL DIFF FLAG NO
[2020-04-03 07:25] LABS: Eosinophils Percent Auto 0.1 % (0-4); Hematocrit 24.6 % (37-47); Hemoglobin 8.4 g/dl (12.0-16.0); Imm Gran Abs Auto 0.05 X10*3/uL (0.00-0.03); Imm Gran Pct Auto 0.5 % (0.0-0.4); Lymphocytes Absolute Auto 1.1 X10*3/uL (1.2-4.9); Mean Corpuscular HGB Conc 34.1 g/dl (31.0-35.0); Mean Corpuscular Hemoglobin 27.6 pg (27.0-33.0); Mean Corpuscular Volume 80.9 fL (80-98); Mean Platelet Volume 8.9 fL (9.4-12.3); Monocytes Absolute Auto 1.1 X10*3/uL (0.1-1.2); Monocytes Percent Auto 11.7 % (2-11); Neutrophils Percent Auto 75.7 % (45-73); Platelet Count 366 X10*3/uL (160-400); Red Blood Count 3.04 X10*6/uL (4.20-5.50); Red Cell Distribution Width 13.1 % (11.0-16.0); White Blood Count 9.3 X10*3/uL (4.8-10.8)
[2020-04-03 07:59] LABS: Anion Gap 13 (12-20); Blood Urea Nitrogen 23 mg/dL (9-16); Calcium 7.7 mg/dL (8.4-10.2); Carbon Dioxide 24 mmol/L (22-29); Chloride 95 mmol/L (96-108); Creatinine Clr Calc Pharmacy 74.1; Estimated Glomerular Filt Rate > 60; Glucose Fasting 104 mg/dL (60-99); Potassium 3.8 mmol/l (3.3-5.1); Sodium 128 mmol/L (135-145)
[2020-04-03] MEDS: Acetaminophen 325 MG TABLET 650 MG PO ×2 (09:29→22:14)
[2020-04-03] MEDS: Heparin Sodium,Porcine 5,000 UNIT/ML VIAL 5000 UNIT SUBCUT ×2 (09:30→22:09)
[2020-04-03] MEDS: 0.9 % Sodium Chloride Flush 3 ML SYRINGE IVFLUSH (09:30)
--- NOTE | 2020-04-03 14:22 | HO.PM.IMPN ---
Subjective Subjective Date of Service: 04/03/20 Interval History: the patient was seen and evaluated this morning Laying in bed, feels comfortable Molina catheter in place, making good amount of urine overnight Denies any fever, chills or shortness of breath No reported other overnight events. Systemic review: No fever, chills or weakness No chest pain, palpitation No shortness of breath or coughing No abdominal pain, nausea or vomiting No urinary symptoms No any rash or wounds Physical Exam Vital Signs: Vital Signs: Last Vital Signs Temp 97.9 F 04/03/20 11:48 Pulse 79 04/03/20 11:48 Resp 18 04/03/20 11:48 BP 136/53 L 04/03/20 11:48 Pulse Ox 94 04/03/20 11:48 Body Mass Index 37.8 Constitutional : Alert, oriented, not in distress Neck : Normal inspection, Supple Cardiovascular : RRR, S1 S2, no lower extremity edema Respiratory : Good bilateral air entry, no crackles, wheezes or rhonchi Gastrointestinal: soft, lax, Normal bowel sounds, Non tender Skin : Warm/Dry, No rash Neurological : Alert & oriented x3, No focal deficit with Objective Data Current Medications Generic Name Dose Route Start Last Admin Trade Name Freq PRN Reason Stop Dose Admin Acetaminophen 650 mg 03/30/20 10:57 04/03/20 09:29 Acetaminophen 325 Mg Tablet PO 650 mg Q6H PRN Administration Pain, Mild (Pain Scale 1-3) Al Hydroxide/Mg Hydroxide 30 ml 04/02/20 11:46 04/02/20 14:03 Magnesium Hydrox/Alum Hydrox 30 Ml Oral.Susp PO 30 ml Q6H PRN Administration Heartburn Heparin Sodium (Porcine) 5,000 unit 04/03/20 10:00 04/03/20 09:30 Heparin Sodium,Porcine 5,000 Unit/Ml Vial SUBCUT 5,000 unit Q12H ABRAM Administration Hydromorphone HCl 0.25 mg 03/30/20 10:57 03/31/20 12:21 Hydromorphone Hcl 0.5 Mg/0.5 Ml Syringe IVPUSH 0.25 mg Q4H PRN Administration Pain, Severe (Pain Scale 7-10) Sodium Chloride 1,000 mls @ 100 mls/hr 04/02/20 08:00 04/03/20 02:32 Ns IVCONT 100 mls/hr .Q10H ABRAM Administration Naloxone HCl 0.2 mg 03/30/20 10:57 Naloxone Hcl 0.4 Mg/Ml Vial IVPUSH Q2M PRN Excessive sedation or RR < 8 Non-Formulary Medication 1 appl 03/30/20 21:00 Calcipotriene TOPICAL BID ABRAM Ondansetron HCl 4 mg 03/30/20 10:57 04/02/20 17:50 Ondansetron Hcl 4 Mg/2 Ml Vial IVPUSH 4 mg Q8H PRN Administration Nausea and Vomiting Oxycodone HCl 10 mg 03/30/20 10:57 03/31/20 08:54 Oxycodone Hcl Immed Release 5 Mg Tablet PO 10 mg Q4H PRN Administration Pain, Moderate (Pain Scale 4-6 Senna 17.2 mg 03/30/20 10:57 Sennosides 8.6 Mg Tablet PO BEDTIME PRN Constipation Sodium Chloride 3 ml 03/30/20 16:00 04/03/20 09:30 0.9 % Sodium Chloride Flush 3 Ml Syringe IVFLUSH 3 ml QSHIFT ABRAM Administration Verapamil HCl 400 mg 03/30/20 21:00 04/02/20 22:05 Verapamil Hcl Sr 100 Mg Cap24h.Pct PO 400 mg BEDTIME ABRAM Administration Protocol Labs CBC & Chem 7: 04/03/20 06:55 04/03/20 06:55 Assessment and Plan (1) MAMIE (acute kidney injury): Status: Acute (2) Creatinine elevation: Status: Acute (3) Status post total right knee replacement not using cement: Status: Acute Assessment and Plan: A 64 years old lady with PMH of psoriatic arthritis, hypertension and obesity who presented to the hospital for elective left knee arthroplasty. Surgery went well and the patient was seen in her room. Acute kidney injury Resolving Likely secondary to hypotensive event and medications Hold hydrochlorothiazide and lisinopril Urinalysis and electrolytes Continue IV fluid Nephrology input appreciated Hyponatremia Improving Sodium improved to 128 Secondary to kidney injury Continue IV fluid Monitor BMP, goal of 135 today Left knee arthroplasty Treatment per orthopedic team Pain management Continue as needed oxycodone for moderate pain Continue hydromorphone for severe pain Hypertension Continue verapamil Discontinue lisinopril and HCT Psoriatic arthritis On embril, to hold for now DVT PPX Heparin Thank you for the consult will continue to follow the patient with you (4) Hyponatremia: Status: Acute
[2020-04-03] MEDS: 0.9 % Sodium Chloride 1,000 ML 60 ML IVCONT (15:10)
[2020-04-04] VITALS (7 sets, daily range): BP systolic 119–154; BP diastolic 48–76; PULSE 82–114; RESP 18–19; TEMP 36.3–37; O2SAT 93–100
[2020-04-04] MEDS: 0.9 % Sodium Chloride 1,000 ML 60 ML IVCONT (07:36)
[2020-04-04 07:48] LABS: MANUAL DIFF FLAG NO
[2020-04-04 07:51] LABS: Basophils Percent Auto 0.1 % (0-2); Eosinophils Percent Auto 0.5 % (0-4); Hematocrit 24.4 % (37-47); Hemoglobin 8.1 g/dl (12.0-16.0); Imm Gran Abs Auto 0.02 X10*3/uL (0.00-0.03); Imm Gran Pct Auto 0.3 % (0.0-0.4); Lymphocytes Absolute Auto 1.5 X10*3/uL (1.2-4.9); Lymphocytes Percent Auto 20.1 % (20-40); Mean Corpuscular HGB Conc 33.2 g/dl (31.0-35.0); Mean Corpuscular Volume 81.3 fL (80-98); Mean Platelet Volume 8.8 fL (9.4-12.3); Monocytes Absolute Auto 0.9 X10*3/uL (0.1-1.2); Monocytes Percent Auto 12.7 % (2-11); Neutrophils Absolute Auto 4.9 X10*3/uL (2.0-8.3); Neutrophils Percent Auto 66.3 % (45-73); Platelet Count 356 X10*3/uL (160-400); White Blood Count 7.4 X10*3/uL (4.8-10.8)
[2020-04-04 08:11] LABS: Anion Gap 12 (12-20); Blood Urea Nitrogen 12 mg/dL (9-16); Calcium 7.6 mg/dL (8.4-10.2); Carbon Dioxide 26 mmol/L (22-29); Chloride 100 mmol/L (96-108); Estimated Glomerular Filt Rate > 60; Glucose Random 98 mg/dL (60-115); Potassium 3.6 mmol/l (3.3-5.1); Sodium 134 mmol/L (135-145)
[2020-04-04 08:13] LABS: Anion Gap 12 (12-20); Blood Urea Nitrogen 12 mg/dL (9-16); Calcium 7.5 mg/dL (8.4-10.2); Carbon Dioxide 25 mmol/L (22-29); Chloride 101 mmol/L (96-108); Estimated Glomerular Filt Rate > 60; Glucose Fasting 96 mg/dL (60-99); Potassium 3.6 mmol/l (3.3-5.1); Sodium 134 mmol/L (135-145)
[2020-04-04] MEDS: Heparin Sodium,Porcine 5,000 UNIT/ML VIAL 5000 UNIT SUBCUT ×2 (09:37→21:35)
--- NOTE | 2020-04-04 10:47 | HO.PM.IMPN ---
Subjective Subjective Date of Service: 04/04/20 Interval History: The patient was seen and evaluated this morning Sitting in her chair, feels comfortable Denies any fever, chills or shortness of breath No reported other overnight events. Systemic review: No fever, chills or weakness No chest pain, palpitation No shortness of breath or coughing No abdominal pain, nausea or vomiting No urinary symptoms No any rash or wounds Physical Exam Vital Signs: Vital Signs: Last Vital Signs Temp 97.4 F 04/04/20 07:21 Pulse 103 H 04/04/20 07:21 Resp 18 04/04/20 07:21 BP 132/76 04/04/20 07:21 Pulse Ox 93 04/04/20 07:21 Body Mass Index 37.8 Constitutional : Alert, oriented, not in distress Neck : Normal inspection, Supple Cardiovascular : RRR, S1 S2, no lower extremity edema Respiratory : Good bilateral air entry, no crackles, wheezes or rhonchi Gastrointestinal: soft, lax, Normal bowel sounds, Non tender Skin : Warm/Dry, No rash, dressing covering the knee Neurological : Alert & oriented x3, No focal deficit Objective Data Current Medications Generic Name Dose Route Start Last Admin Trade Name Freq PRN Reason Stop Dose Admin Acetaminophen 650 mg 03/30/20 10:57 04/03/20 22:14 Acetaminophen 325 Mg Tablet PO 650 mg Q6H PRN Administration Pain, Mild (Pain Scale 1-3) Al Hydroxide/Mg Hydroxide 30 ml 04/02/20 11:46 04/02/20 14:03 Magnesium Hydrox/Alum Hydrox 30 Ml Oral.Susp PO 30 ml Q6H PRN Administration Heartburn Heparin Sodium (Porcine) 5,000 unit 04/03/20 10:00 04/04/20 09:37 Heparin Sodium,Porcine 5,000 Unit/Ml Vial SUBCUT 5,000 unit Q12H ABRAM Administration Hydromorphone HCl 0.25 mg 03/30/20 10:57 03/31/20 12:21 Hydromorphone Hcl 0.5 Mg/0.5 Ml Syringe IVPUSH 0.25 mg Q4H PRN Administration Pain, Severe (Pain Scale 7-10) Naloxone HCl 0.2 mg 03/30/20 10:57 Naloxone Hcl 0.4 Mg/Ml Vial IVPUSH Q2M PRN Excessive sedation or RR < 8 Non-Formulary Medication 1 appl 03/30/20 21:00 Calcipotriene TOPICAL BID ABRAM Ondansetron HCl 4 mg 03/30/20 10:57 04/02/20 17:50 Ondansetron Hcl 4 Mg/2 Ml Vial IVPUSH 4 mg Q8H PRN Administration Nausea and Vomiting Oxycodone HCl 10 mg 03/30/20 10:57 03/31/20 08:54 Oxycodone Hcl Immed Release 5 Mg Tablet PO 10 mg Q4H PRN Administration Pain, Moderate (Pain Scale 4-6 Senna 17.2 mg 03/30/20 10:57 Sennosides 8.6 Mg Tablet PO BEDTIME PRN Constipation Sodium Chloride 3 ml 03/30/20 16:00 04/04/20 07:36 0.9 % Sodium Chloride Flush 3 Ml Syringe IVFLUSH Not Given QSHIFT ABRAM Verapamil HCl 400 mg 03/30/20 21:00 04/03/20 22:07 Verapamil Hcl Sr 100 Mg Cap24h.Pct PO 400 mg BEDTIME ABRAM Administration Protocol Labs CBC & Chem 7: 04/04/20 07:13 04/04/20 07:13 Assessment and Plan (1) MAMIE (acute kidney injury): Status: Acute (2) Creatinine elevation: Status: Acute (3) Status post total right knee replacement not using cement: Status: Acute Assessment and Plan: A 64 years old lady with PMH of psoriatic arthritis, hypertension and obesity who presented to the hospital for elective left knee arthroplasty. Surgery went well and the patient was seen in her room. Acute kidney injury Resolved DC IVF Can restart home meds at DC Hyponatremia resolved Left knee arthroplasty Pain management Continue as needed oxycodone for moderate pain Continue hydromorphone for severe pain Treatment per orthopedic team Hypertension Continue verapamil restart home meds on DC Patient clear from medical perspective for discharge. (4) Hyponatremia: Status: Acute
--- NOTE | 2020-04-04 11:22 | PM.PNORT ---
Subjective Subjective Date of Service: 04/04/20 Principal diagnosis: Postop day 3 status post left total knee arthroplasty Interval history: pateint continues to be tired but otherwise no complaints Physical Exam Vital Signs: Vital Signs: Last Vital Signs Temp 97.4 F 04/04/20 07:21 Pulse 103 H 04/04/20 07:21 Resp 18 04/04/20 07:21 BP 132/76 04/04/20 07:21 Pulse Ox 93 04/04/20 07:21 Body Mass Index 37.8 Extrem: Other: inc c/d/i. 0-80 deg motion. quad firing but weak Progress Note: A&P Assessment and plan (1) Status post total right knee replacement not using cement: Status: Acute Assessment and Plan: wbat cont dct chemo and mechanoprohphylaxis po pain control Cr resolved home tomorrow with home PT Fall Risk Details Current Medications: Current Medications Generic Name Dose Route Start Last Admin Trade Name Freq PRN Reason Stop Dose Admin Acetaminophen 650 mg 03/30/20 10:57 04/03/20 22:14 Acetaminophen 325 Mg Tablet PO 650 mg Q6H PRN Administration Pain, Mild (Pain Scale 1-3) Al Hydroxide/Mg Hydroxide 30 ml 04/02/20 11:46 04/02/20 14:03 Magnesium Hydrox/Alum Hydrox 30 Ml Oral.Susp PO 30 ml Q6H PRN Administration Heartburn Heparin Sodium (Porcine) 5,000 unit 04/03/20 10:00 04/04/20 09:37 Heparin Sodium,Porcine 5,000 Unit/Ml Vial SUBCUT 5,000 unit Q12H ABRAM Administration Naloxone HCl 0.2 mg 03/30/20 10:57 Naloxone Hcl 0.4 Mg/Ml Vial IVPUSH Q2M PRN Excessive sedation or RR < 8 Non-Formulary Medication 1 appl 03/30/20 21:00 Calcipotriene TOPICAL BID ABRAM Ondansetron HCl 4 mg 03/30/20 10:57 04/02/20 17:50 Ondansetron Hcl 4 Mg/2 Ml Vial IVPUSH 4 mg Q8H PRN Administration Nausea and Vomiting Senna 17.2 mg 03/30/20 10:57 Sennosides 8.6 Mg Tablet PO BEDTIME PRN Constipation Sodium Chloride 3 ml 03/30/20 16:00 04/04/20 07:36 0.9 % Sodium Chloride Flush 3 Ml Syringe IVFLUSH Not Given QSHIFT ABRAM Verapamil HCl 400 mg 03/30/20 21:00 04/03/20 22:07 Verapamil Hcl Sr 100 Mg Cap24h.Pct PO 400 mg BEDTIME ABRAM Administration Protocol Time Spent With Patient Time: Total time spent is greater than 50% in coordination of care (as documented) at patient's floor/unit and/or counseling patient: Time with patient: less than 15 minutes
[2020-04-04] MEDS: 0.9 % Sodium Chloride Flush 3 ML SYRINGE IVFLUSH ×2 (16:04→21:39)
[2020-04-04] MEDS: Acetaminophen 325 MG TABLET 650 MG PO (17:30)
--- NOTE | 2020-04-04 19:18 | PC.NURSE ---
Iv occluded, unable to flush. Pt on no IV medications. Dr. Mcneal notified. Stated pt does not need IV access. IV removed, no issues.
[2020-04-05] VITALS: BP 162/66; PULSE 90; RESP 18; TEMP 36.9; O2SAT 96
[2020-04-05 03:01] VITALS: BP 153/80; PULSE 85; RESP 16; TEMP 36.9; O2SAT 96
[2020-04-05 07:56] VITALS: BP 153/80; PULSE 85; O2SAT 96
[2020-04-05 08:00] VITALS: BP 197/86; PULSE 87; RESP 20; TEMP 36.3; O2SAT 99
[2020-04-05 08:13] LABS: MANUAL DIFF FLAG NO
[2020-04-05 08:15] LABS: Basophils Percent Auto 0.2 % (0-2); Eosinophils Absolute Auto 0.1 X10*3/uL (0.0-0.4); Eosinophils Percent Auto 0.8 % (0-4); Hematocrit 27.5 % (37-47); Hemoglobin 9.2 g/dl (12.0-16.0); Imm Gran Abs Auto 0.04 X10*3/uL (0.00-0.03); Imm Gran Pct Auto 0.3 % (0.0-0.4); Lymphocytes Absolute Auto 2.3 X10*3/uL (1.2-4.9); Lymphocytes Percent Auto 20.1 % (20-40); Mean Corpuscular HGB Conc 33.5 g/dl (31.0-35.0); Mean Corpuscular Hemoglobin 27.5 pg (27.0-33.0); Mean Corpuscular Volume 82.1 fL (80-98); Mean Platelet Volume 8.5 fL (9.4-12.3); Monocytes Absolute Auto 1.2 X10*3/uL (0.1-1.2); Monocytes Percent Auto 10.4 % (2-11); Neutrophils Percent Auto 68.2 % (45-73); Platelet Count 496 X10*3/uL (160-400); Red Blood Count 3.35 X10*6/uL (4.20-5.50); Red Cell Distribution Width 13.1 % (11.0-16.0); White Blood Count 11.7 X10*3/uL (4.8-10.8)
[2020-04-05 08:48] LABS: Chloride 97 mmol/L (96-108)
[2020-04-05 08:49] LABS: Anion Gap 15 (12-20); Blood Urea Nitrogen 9 mg/dL (9-16); Calcium 8.1 mg/dL (8.4-10.2); Carbon Dioxide 27 mmol/L (22-29); Estimated Glomerular Filt Rate > 60; Glucose Random 98 mg/dL (60-115); Potassium 3.7 mmol/l (3.3-5.1); Sodium 135 mmol/L (135-145)
--- NOTE | 2020-04-05 09:19 | PM.PNNEP ---
Subjective Subjective Date of Service: 04/05/20 Principal diagnosis: Postop day 3 status post left total knee arthroplasty Interval history: Events noted Feeling OK Physical Exam Vital Signs: Vital Signs: Last Vital Signs Temp 97.4 F 04/05/20 08:00 Pulse 87 04/05/20 08:00 Resp 20 04/05/20 08:00 BP 197/86 H 04/05/20 08:00 Pulse Ox 99 04/05/20 08:00 Body Mass Index 37.8 Const: General: no acute distress Neck: Neck: Yes supple Resp: Auscultation: clear to auscultation bilaterally Cardio: Heart sounds: no murmurs and no rubs GI: Palpation (GI): Soft to palpation Auscultation: normal bowel sounds Neuro: Motor exam (neuro): no asterixis Objective Data Labs CBC & Chem 7: 04/05/20 07:55 04/05/20 08:00 Labs: Laboratory Results - last 24 hr 04/05/20 04/05/20 07:55 08:00 WBC 11.7 H RBC 3.35 L Hgb 9.2 L Hct 27.5 L MCV 82.1 MCH 27.5 MCHC 33.5 RDW 13.1 Plt Count 496 H D MPV 8.5 L Immature Gran % (Auto) 0.3 Neut % (Auto) 68.2 Lymph % (Auto) 20.1 [place] % (Auto) 10.4 Eos % (Auto) 0.8 Baso % (Auto) 0.2 Lymph # (Auto) 2.3 [place] # (Auto) 1.2 Eos # (Auto) 0.1 Baso # (Auto) 0.0 Abs Immat Gran (auto) 0.04 H Absolute Neuts (auto) 8.0 Absolute Nucleated RBC 0.000 Nucleated RBC % (auto) 0.0 Sodium 135 Potassium 3.7 Chloride 97 Carbon Dioxide 27 Anion Gap 15 BUN 9 Creatinine 0.65 Estim Creat Clear Calc 105.0 Estimated GFR > 60 Random Glucose 98 Calcium 8.1 L D Assessment & Plan Assessment and plan (1) MAMIE (acute kidney injury): Problem details: MAMIE due to hypoperfusion Resolved after stopping ACI/HCTZ Can restart Lisinopril at 20 mg QD to optimize BP Status: Acute (2) Hyponatremia: Problem details: Due to HCTZ Off HCTZ now Would avoid HCTZ in future Status: Acute Assessment and Plan: DC planning. Follow up with PCP in 1- 2 weeks to recheck BP Time Spent With Patient Time: Total time spent is greater than 50% in coordination of care (as documented) at patient's floor/unit and/or counseling patient:
[2020-04-05] MEDS: Heparin Sodium,Porcine 5,000 UNIT/ML VIAL 5000 UNIT SUBCUT (09:20)
[2020-04-05 09:32] VITALS: BP 152/70
--- NOTE | 2020-04-05 09:45 | W.MHC.F2F ---
Service Date Service Date: 04/05/20 Reasons for Services Reason for prison: postoperative assessment and/or care and other (b/p monitoring ) Reason for physical therapy: home safety and mobility, therapeutic exercises, restore joint function, gait/transfer training and ADL training Reason for occupational therapy: home safety and mobility, therapeutic exercises, restore joint function, gait/transfer training and ADL training MD Overseeing Care: Jamal Badillo Homebound: Leaving the home is medically contraindicated at this time without the asist of a device and/or another person due th the listed conditions above and below. Reason homebound: unsteady gait / fall risk, fall risk related to blood pressure changes, pain with ambulation, poor balance / fall risk and unable to drive Homebound supporting statement: Pt. is considered home bound due to recent surgery. Unable to drive, poor balance, poor gait mechanics. Certification: Based on the above findings, I certify that this patient is confined to the home and needs intermittent prison care, physical therapy and/or speech therapy, or continues to need occupational therapy. The patient is under my care, and I have initiated the establishment of the plan of care. The patient will be followed by a physician who will periodically review the plan of care.
--- NOTE | 2020-04-05 10:25 | MHC.CM.PN ---
Discharge: Pt discharging home with [facility] for nursing for lovenox admin teaching and home PT. Daughter Delia Garsia [phone] to transport pt home.
[2020-04-05] MEDS: Acetaminophen 325 MG TABLET 650 MG PO (12:45)
--- NOTE | 2020-04-07 15:06 | PM.DS ---
DS: Providers Provider Date of admission: 03/30/20 05:15 Primary care physician: Barbi Noble MD Consults: 03/30/20 10:57 Consult to Hospitalist Routine Consulting Provider: Hospitalist Reason for consultation: htn/ medical managment 04/02/20 07:59 Consult to Nephrology Routine Consulting Provider: Godfrey Diez Reason for consultation: elevated Cr level s/p TKA DS: Diagnosis Discharge Diagnosis (1) MAMIE (acute kidney injury): Status: Acute Problem details: MAMIE due to hypoperfusion Resolved after stopping ACI/HCTZ Can restart Lisinopril at 20 mg QD to optimize BP (2) Hyponatremia: Status: Acute Problem details: Due to HCTZ Off HCTZ now Would avoid HCTZ in future (3) Status post total right knee replacement not using cement: Status: Acute Problem details: Debra Lerner is a 64 year old female who presented to the office with ongoing right knee pain. She was found have osteoarthritis of the right knee and had difficulty with ambulation and daily activities therefore she consented to move forward with right total knee arthroplasty. DS: Medications Discharge Medications Home Medications: Home Medications Medication Instructions Recorded Confirmed Enbrel SureClick 50 mg SUBCUT 2XW 03/15/20 03/16/20 calcipotriene 1 applic TOPICAL BID 03/15/20 03/15/20 lisinopril 1 tab PO DAILY 03/15/20 03/15/20 verapamil 2 cap PO BEDTIME 03/15/20 03/16/20 Previous Rx's Medication Instructions Recorded acetaminophen 650 mg PO Q6H PRN 30 Days #240 tab 04/02/20 enoxaparin 40 mg SUBCUT Q24H 14 Days #5.6 ml 04/02/20 sennosides [Senna Lax] 17.2 mg PO BEDTIME PRN 30 Days #60 04/02/20 tab oxycodone 10 mg PO Q6H PRN 7 Days #42 tab 04/05/20 nitrofurantoin 100 mg PO BID 7 Days #14 cap 04/06/20 monohydrate/macrocrystals 100 mg capsule DS: Summary Hospital Course Hospital Course: Patient underwent a successful right total knee arthroplasty she was transferred to PACU and then to the floor where she recovered during her stay her vitals are stable afebrile at 97.4. Postop day 1 her creatinine jumped to 3.21 and BUN to 30, postop day 2 creatinine 4.04 and BUN 49. She was given fluids and nephrology was consulted and her hypertensive meds were held. Prior to discharge her BUN and creatinine were back to baseline 0.65 and 9. H&H 9.2 and 27.5. She also received physical therapy services twice a day was also given Lovenox for DVT prophylaxis. Prior to discharge her Aquacel dressing was changed incision clean dry and intact oxygen applied and plan is for her to be discharged home with physical therapy services. Time Spent with Patient Time attestation: Total time spent providing and/or coordinating discharge services: Physical Exam Vital Signs: Vital Signs: Last Vital Signs Temp 97.4 F 04/05/20 08:00 Pulse 87 04/05/20 08:00 Resp 20 04/05/20 08:00 BP 152/70 H 04/05/20 09:32 Pulse Ox 99 04/05/20 08:00 Body Mass Index 37.8 Const: General: cooperative and no acute distress Orientation/consciousness: patient oriented x3 Resp: Effort & Inspection: normal respiratory effort and able to speak in complete sentences Cardio: Peripheral pulses: Peripheral pulses 2+ throughout Neuro: General: patient oriented x3 Extrem: Other: Right knee incision clean dry and intact. Rosa intact. No erythema, mild edema. Calf supple nontender. DS: Data Data Completed and Pending Completed studies during hospitalization [Text1]: Pending at discharge 03/30/20 09:15 Surgical [PTH] Routine Procedures Replacement of Left Knee Joint with Synthetic Substitute, Uncemented, Open Approach (03/30/20) Labs on day of discharge: 03/16/20 MRSA Nasal Screen Routine 03/26/20 11:34 Type and Screen Routine 03/30/20 05:15 Providone-Iodine Solution 5% nasal swab .Both Nares x2 pre-op Surgical prep, hair removal PREOP 03/30/20 05:45 COVID-19 ID NOW ([facility]) Stat 03/30/20 06:05 vancomycin HCL 1,500 mg 0.9 % Sodium Chloride [Ns] 250 ml IV PREOP 03/30/20 06:07 Gabapentin [Neurontin] 600 mg PO PREOP ONE 03/30/20 06:15 Lactated Ringers [Lr] 1,000 ml IVCONT 100 mls/hr 03/30/20 06:29 Gabapentin [Neurontin] 300 mg .ROUTE .STK-MED ONE 03/30/20 07:13 Midazolam HCl/PF [Versed] 2 mg .ROUTE .STK-MED ONE 03/30/20 08:49 Tranexamic Acid [Cyklokapron] 1,000 mg .ROUTE .STK-MED ONE propofoL [Diprivan] 200 mg IVPUSH .STK-MED ONE 03/30/20 08:50 Bupivacaine MPF 0.5 % [Sensorcaine MPF 0.5% 30 ML] 30 ml .ROUTE .STK-MED ONE Lidocaine HCl 2 % MPF [Xylocaine 2 % MPF] 5 ml .ROUTE .STK-MED ONE 03/30/20 09:08 Acetaminophen [Tylenol] 650 mg PO ONCE PRN Ketorolac Tromethamine [Toradol] 15 mg IVPUSH ONCE PRN ondansetron HCL [Zofran] 4 mg IVPUSH ONCE PRN oxyCODONE HCl Immed Release [Roxicodone] 5 mg PO ONCE PRN 03/30/20 09:15 Surgical [PTH] Routine 03/30/20 09:47 Transfer Order Routine 03/30/20 10:07 XR knee LT 2V Urgent 03/30/20 10:57 Acetaminophen [Tylenol] 650 mg PO Q6H PRN Dextrose 5 % and 0.45 % NaCl [D51/2Ns] 1,000 ml IVCONT 80 mls/hr HYDROmorphone HCl [Dilaudid] 0.25 mg IVPUSH Q4H PRN Naloxone HCl [Narcan] 0.2 mg IVPUSH Q2M PRN Sennosides [Senokot] 17.2 mg PO BEDTIME PRN etanercept [Enbrel SureClick] 50 mg SUBCUT 2XW ondansetron HCL [Zofran] 4 mg IVPUSH Q8H PRN oxyCODONE HCl Immed Release [Roxicodone] 10 mg PO Q4H PRN 03/30/20 10:57 Apply ice pack .as needed Compression Therapy QSHIFT Incentive Spirometry Q1HR WHILE AWAKE Oxygen administration Nasal Cannula 2 lpm Straight Urinary Catheterization NEEDED Vital Signs Q4HR Physical Therapy Eval & Treat BID 03/30/20 12:00 Code Status Routine 03/30/20 16:00 0.9 % Sodium Chloride Flush [NS Flush] 3 ml IVFLUSH QSHIFT 03/30/20 18:09 vancomycin HCL 1,000 mg .ROUTE .STK-MED ONE 03/30/20 19:00 vancomycin HCL 1,000 mg 0.9 % Sodium Chloride [Ns] 250 ml IV POSTOP 03/30/20 21:00 VerapamiL HCL SR [Verelan PM] 400 mg PO BEDTIME calcipotriene 1 appl TOPICAL BID oxyCODONE HCl ER [OxyCONTIN] 10 mg PO BID 03/31/20 06:44 Basic Metabolic Panel Fasting DAILY@0600 Complete Blood Count Auto Diff DAILY@0600 SLIDE REVIEW Routine 03/31/20 09:00 hydroCHLOROthiazide [Microzide] 25 mg PO DAILY lisinopriL [Zestril] 40 mg PO DAILY 03/31/20 10:00 Enoxaparin Sodium [Lovenox] 40 mg SUBCUT Q24H 04/01/20 06:15 Basic Metabolic Panel Fasting DAILY@0600 Complete Blood Count Auto Diff DAILY@0600 SLIDE REVIEW Routine 04/02/20 06:08 Basic Metabolic Panel Fasting DAILY@0600 Complete Blood Count Auto Diff DAILY@0600 SLIDE REVIEW Routine 04/02/20 06:18 Osmolality, Serum Routine 04/02/20 08:00 0.9 % Sodium Chloride [Ns] 1,000 ml IVCONT 60 mls/hr 04/02/20 08:29 Add Laboratory Test Urgent 04/02/20 08:50 Molina catheter [Insert/maintain urinary catheter] NOW 04/02/20 09:41 Creatinine Urine Stat Osmolality Urine Stat Potassium Urine Random Stat Sodium Urine Random Stat Total Protein Urine Random Stat Urine Eosinophil Stat 04/02/20 11:46 Magnesium Hydrox/Alum Hydrox [Maalox] 30 ml PO Q6H PRN 04/02/20 12:32 Basic Metabolic Panel Routine Osmolality, Serum Routine 04/03/20 06:55 Basic Metabolic Panel Fasting DAILY@0600 Complete Blood Count Auto Diff DAILY@0600 04/03/20 10:00 Heparin Sodium,Porcine 5,000 unit SUBCUT Q12H 04/04/20 07:13 Basic Metabolic Panel DAILY@0600 Basic Metabolic Panel Fasting DAILY@0600 Complete Blood Count Auto Diff DAILY@0600 04/05/20 07:55 Complete Blood Count Auto Diff DAILY@0600 04/05/20 08:00 Basic Metabolic Panel DAILY@0600 Laboratory Last Values WBC 11.7 X10*3/uL (4.8-10.8) H 04/05/20 07:55 RBC 3.35 X10*6/uL (4.20-5.50) L 04/05/20 07:55 Hgb 9.2 g/dl (12.0-16.0) L 04/05/20 07:55 Hct 27.5 % (37-47) L 04/05/20 07:55 MCV 82.1 fL (80-98) 04/05/20 07:55 MCH 27.5 pg (27.0-33.0) 04/05/20 07:55 MCHC 33.5 g/dl (31.0-35.0) 04/05/20 07:55 RDW 13.1 % (11.0-16.0) 04/05/20 07:55 Plt Count 496 X10*3/uL (160-400) H D 04/05/20 07:55 MPV 8.5 fL (9.4-12.3) L 04/05/20 07:55 Immature Gran % (Auto) 0.3 % (0.0-0.4) 04/05/20 07:55 Neut % (Auto) 68.2 % (45-73) 04/05/20 07:55 Lymph % (Auto) 20.1 % (20-40) 04/05/20 07:55 [place] % (Auto) 10.4 % (2-11) 04/05/20 07:55 Eos % (Auto) 0.8 % (0-4) 04/05/20 07:55 Baso % (Auto) 0.2 % (0-2) 04/05/20 07:55 Lymph # (Auto) 2.3 X10*3/uL (1.2-4.9) 04/05/20 07:55 [place] # (Auto) 1.2 X10*3/uL (0.1-1.2) 04/05/20 07:55 Eos # (Auto) 0.1 X10*3/uL (0.0-0.4) 04/05/20 07:55 Baso # (Auto) 0.0 X10*3/uL (0.0-0.2) 04/05/20 07:55 Abs Immat Gran (auto) 0.04 X10*3/uL (0.00-0.03) H 04/05/20 07:55 Absolute Neuts (auto) 8.0 X10*3/uL (2.0-8.3) 04/05/20 07:55 Absolute Nucleated RBC 0.000 X10*3/uL (0.0-0.012) 04/05/20 07:55 Nucleated RBC % (auto) 0.0 /100WBC (0.0-0.2) 04/05/20 07:55 Smear Tech's Comments VERIFIED 04/02/20 06:08 Sodium 135 mmol/L (135-145) 04/05/20 08:00 Potassium 3.7 mmol/l (3.3-5.1) 04/05/20 08:00 Chloride 97 mmol/L (96-108) 04/05/20 08:00 Carbon Dioxide 27 mmol/L (22-29) 04/05/20 08:00 Anion Gap 15 (12-20) 04/05/20 08:00 BUN 9 mg/dL (9-16) 04/05/20 08:00 Creatinine 0.65 mg/dL (0.5-1.4) 04/05/20 08:00 Estim Creat Clear Calc 105.0 04/05/20 08:00 Estimated GFR > 60 04/05/20 08:00 Random Glucose 98 mg/dL (60-115) 04/05/20 08:00 Fasting Glucose 96 mg/dL (60-99) 04/04/20 07:13 Osmolality 272 mosm/kg (281-305) L 04/02/20 12:32 Calcium 8.1 mg/dL (8.4-10.2) L D 04/05/20 08:00 Urine Eosinophils % 0.0 % 04/02/20 09:41 Urine Osmolality 367 mosm/kg (373-1093) L 04/02/20 09:41 Urine Osmolality Cancelled 04/02/20 09:41 U Random Total Protein 40 mg/dL (<12) H 04/02/20 09:41 Ur Random Sodium < 20.0 mmol/L 04/02/20 09:41 Ur Random Potassium 41.8 mmol/l 04/02/20 09:41 Urine Creatinine 178.31 mg/dL 04/02/20 09:41 Nasal Screen MRSA (PCR) NEGATIVE (Negative) 03/16/20 Unknown Nasal S. aureus Screen NEGATIVE (Negative) 03/16/20 Unknown Nasal MRSA/S.aureus Interp SEE NOTE 03/16/20 Unknown COVID-19 (ANKIT) Negative (Negative) 03/30/20 05:45 COVID-19 Clin Com See Note 03/30/20 05:45 Blood Type B Positive 03/26/20 11:34 Antibody Screen NEGATIVE 03/26/20 11:34 Discharge Plan Discharge Patient Disposition: Home Health Service Referrals: [facility] [Outside] - 1 Day (NURSING FOR HOME LOVENOX ADMINISTRATION TEACHING AND HOME PHYSICAL THERAPY. PLEASE CALL ABOVE NUMBER IF YOU HAVEN'T HEARD FROM THEM BY NOON.) Barbi Noble MD [Primary Care Provider] - (Follow up with PCP in 1- 2 weeks to recheck BP) Thuan Mario PA-C [Physician Stripper Apprentice] - (2 wk post op) Discharge Medications: New sennosides [Senna Lax] 8.6 mg Tablet 17.2 mg PO BEDTIME PRN (Reason: Constipation) 30 Days Qty: 60 RF: 0 acetaminophen 325 mg Tablet 650 mg PO Q6H PRN (Reason: Pain, Mild (Pain Scale 1-3)) 30 Days Qty: 240 RF: 0 enoxaparin 40 mg/0.4 mL Syringe 40 mg subcut Q24H 14 Days Qty: 5.6 RF: 0 oxycodone 10 mg tablet 10 mg PO Q6H PRN (Reason: pain) 7 Days Qty: 42 RF: 0 Continued verapamil 200 mg capsule, [address] 2 cap PO BEDTIME RF: 0 lisinopril 40 mg tablet 1 tab PO DAILY RF: 0 calcipotriene 0.005 % ointment 1 applic topical BID RF: 0 Enbrel SureClick 50 mg/mL (1 mL) Pen Injector 50 mg SUBCUT 2XW RF: 0 Discontinued hydrochlorothiazide 25 mg tablet 1 tab PO DAILY RF: 0 No Action nitrofurantoin monohyd/m-cryst [Macrobid] 100 mg capsule 100 mg PO BID 7 Days Qty: 14 RF: 0 Discharge Orders: Discharge Order (Routine); Ordered 04/05/20 Ordered By: Thuan Mario Diet: regular diet Activity on Discharge: Use cane or walker Discharge Date/Time: 04/05/20 13:00 Activity Restrictions/Additional Instructions: Physical Therapy for ROM 0-120, quad strength, gait training . Use walker for ambulation Limit stair climbing, No shower, No tub bath, No driving Continue lovenox Keep Aquacel dressing clean, dry and intact. Follow up with orthopedics in 2 weeks Visit Report Forms: Patient Portal Discharge page Care Plan Goals: Restore function of left knee Health Concerns: none Plan of Treatment: Physical Therapy Pain management DVT prophylaxis
== END 2020-04-05 13:00 | disposition home health service (06) | DRG 470 ==
LOC: HO.SSSA 05:32 → HO.S3 10:13
PROVIDERS: Internal Medicine Hypertension Specialist; Physician Assistant; Student in an Organized Health Care Education/Training Program; Admitting Provider Orthopaedic Surgery; PCP Internal Medicine; Visit Provider Orthopaedic Surgery
PROC: 0SRD0JA Replacement of Left Knee Joint with Synthetic Substitute, Uncemented, Open Approach (ICD-10-PCS; CPT 27447; principal; 2020-03-30 07:30)
DX: M17.12 Unilateral primary osteoarthritis, left knee (principal); N17.9 Acute kidney failure, unspecified; Z20.828 Contact with and (suspected) exposure to other viral communicable diseases; Z88.0 Allergy status to penicillin; L40.50 Arthropathic psoriasis, unspecified; I10 Essential (primary) hypertension; Z68.37 Body mass index [BMI] 37.0-37.9, adult; E66.9 Obesity, unspecified; Z88.2 Allergy status to sulfonamides; Z79.899 Other long term (current) drug therapy
CPT/HCPCS: 27447; 36415; 73560; 80048; 83930; 83935; 84133; 84156; 84300; 85025; 86850; 86900; 86901; 87635; 87640; 87641; 88305; 88311; 89190; 97110; 97116; 97162; 97530; 99024; 99225; 99233; C1758; C1776; J1170; J1650; J2250; J2405; J3370

== ENCOUNTER → 2020-04-14 13:36 | Outpatient (BNVA) | payer MEDICARE, SELFPAY | PROVIDERS: PCP Internal Medicine; Visit Provider Physician Assistant | DX: Z47.1 Aftercare following joint replacement surgery (principal); Z96.651 Presence of right artificial knee joint | CPT/HCPCS: 99212 ==

== ENCOUNTER → 2020-05-13 12:32 | Outpatient (BNVA) | payer MEDICARE, SELFPAY | PROVIDERS: PCP Internal Medicine; Visit Provider Orthopaedic Surgery | DX: Z47.1 Aftercare following joint replacement surgery (principal); Z96.651 Presence of right artificial knee joint | CPT/HCPCS: 99212 ==

== ENCOUNTER 2021-05-23 12:26 | Outpatient (REF) | payer MEDICARE, SELFPAY ==
--- NOTE | ~2021-05-23 | XR_ITS ---
EXAMINATION: XR KNEE, BILATERAL CLINICAL INFORMATION: Knee pain. COMPARISON: Previous x-rays from May and March 2020 TECHNIQUE: Standing AP, lateral and sunrise views of both knees. FINDINGS: Right knee: No fracture or dislocation is seen. There is mild varus angulation. There is arthritis at the medial femorotibial and patellofemoral joints. There is a small joint effusion. Left knee: There is a left 3-component knee replacement. The patellar component appears slightly low on the lateral view. No fracture or dislocation or x-ray evidence of loosening is seen. There is a small joint effusion. XR/XR knee standing BI IMPRESSION: Right knee: Varus angulation and arthritis at the medial femorotibial and patellofemoral joints. Left knee: Three-component left knee replacement. Question low position of the patellar component on the lateral view.
--- NOTE | ~2021-05-23 | XR_ITS ---
EXAMINATION: XR KNEE, BILATERAL CLINICAL INFORMATION: Knee pain. COMPARISON: Previous x-rays from May and March 2020 TECHNIQUE: Standing AP, lateral and sunrise views of both knees. FINDINGS: Right knee: No fracture or dislocation is seen. There is mild varus angulation. There is arthritis at the medial femorotibial and patellofemoral joints. There is a small joint effusion. Left knee: There is a left 3-component knee replacement. The patellar component appears slightly low on the lateral view. No fracture or dislocation or x-ray evidence of loosening is seen. There is a small joint effusion. XR/XR knee RT 2V IMPRESSION: Right knee: Varus angulation and arthritis at the medial femorotibial and patellofemoral joints. Left knee: Three-component left knee replacement. Question low position of the patellar component on the lateral view.
--- NOTE | ~2021-05-23 | XR_ITS ---
EXAMINATION: XR KNEE, BILATERAL CLINICAL INFORMATION: Knee pain. COMPARISON: Previous x-rays from May and March 2020 TECHNIQUE: Standing AP, lateral and sunrise views of both knees. FINDINGS: Right knee: No fracture or dislocation is seen. There is mild varus angulation. There is arthritis at the medial femorotibial and patellofemoral joints. There is a small joint effusion. Left knee: There is a left 3-component knee replacement. The patellar component appears slightly low on the lateral view. No fracture or dislocation or x-ray evidence of loosening is seen. There is a small joint effusion. XR/XR knee LT 2V IMPRESSION: Right knee: Varus angulation and arthritis at the medial femorotibial and patellofemoral joints. Left knee: Three-component left knee replacement. Question low position of the patellar component on the lateral view.
== END 2021-05-23 12:27 | disposition home or self-care (01) ==
LOC: HO.HOSX 12:26
PROVIDERS: Visit Provider Orthopaedic Surgery
DX: M25.561 Pain in right knee (principal); Z96.652 Presence of left artificial knee joint
CPT/HCPCS: 73560; 73565; 99212

== ENCOUNTER → 2021-08-25 12:11 | Outpatient (RCR) | payer MEDICARE, SELFPAY ==
--- NOTE | 2020-03-09 13:43 | MHC.PT.EP ---
[facility] [place] Office [place] Office [place] Office [address] Joanne [address] [phone] F: [phone] F: [phone] F: [phone] F: [phone] Physical Therapy Plan of Care Date of Evaluation: 03/09/20 Date of Surgery: Diagnosis: Prehab L knee, OA of R knee. Assessment: Pt is a 64 y/o female referred to PT for eval and treat of L knee OA prehab and R knee OA resulting in decreased tolerance for standing for duration, descending stairs, and performing yard-work/ heavy HH chores secondary to decreased B knee ROM and strength, gait abnormality, increased LE tissue tension, and Pain. Frequency and Duration: The patient will be seen 2x/wk x 2 wks Short Term Goals: In 1 week: initiate HEP to include prehab TKA exercises. Chief Cruiser Goals: In 2 weeks: I with HEP and performance of stairs s/p TKA. In 2 weeks: improve L knee flexion ROM to > 119 degrees; initial 110. In 2 weeks: improve L knee ext to < 3 degrees flexion; initial 10 degrees extension. Treatment Plan: Modalities to reduce pain, spasms and effusion. Manual therapy to restore motion and function. Therapeutic exercise to improve strength and flexibility. Neuromuscular re-education for posture and balance. Therapeutic activities to return to functional activities of daily living. Please sign and return to therapist. Thank you for your referral.
--- NOTE | 2020-03-22 14:38 | MHC.PT.DC ---
[facility] [place] Office [place] Office [place] Office [address] Meagan Hernandez [address] [phone] F: [phone] F: [phone] F: [phone] F: [phone] Physical Therapy Discharge Report Diagnosis: Prehab L knee, OA of R knee. Date of Surgery: Date of Evaluation: 03/09/20 Date of Discharge: 03/17/20 Treatments to Date: 4 Cancellations to Date: 0 No Shows to Date: 0 Discharge Status: Achieved Goals Independent with HEP Discharge Summary: Good compliance with HEP and performance. Educated on pre op and post op PT. Patient would like to DC from therapy and is ready for surgery at this point. Electronically signed by: Stu Martinez PT. Please sign and return to therapist. Thank you for your referral.
== END | disposition home or self-care (01) ==
LOC: HO.PTCHIC 03-09 10:43
PROVIDERS: PCP Internal Medicine; Visit Provider Physician Assistant
DX: M17.11 Unilateral primary osteoarthritis, right knee (principal); M17.12 Unilateral primary osteoarthritis, left knee
CPT/HCPCS: 97110; 97116; 97161; 97530

== ENCOUNTER 2022-05-22 11:36 | Outpatient (REF) | payer MEDICARE, SELFPAY ==
--- NOTE | ~2022-05-22 | XR_ITS ---
EXAMINATION: XR KNEE, RIGHT XR KNEE, LEFT XR KNEE AP STANDING CLINICAL INFORMATION: Pain. COMPARISON: Radiographs dated 05/23/2021. TECHNIQUE: Lateral and axial views of the right knee were obtained. Lateral and axial views of the left knee were obtained. AP bilateral standing view of the knees was obtained. FINDINGS: There is moderate asymmetric narrowing of the medial joint space compartment of the right knee. The right lateral joint space compartment is well-maintained. There is a second. Mild varus configuration. There is moderate narrowing of the patellofemoral compartment. There is tricompartment peripheral osteophyte formation. No fracture, dislocation or joint effusion is seen. There is no foreign body. Prosthetic components of the left total knee arthroplasty are appropriately aligned without periprosthetic fracture or lucency. No component migration. No joint effusion. XR/XR knee standing BI IMPRESSION: 1. There is tricompartment osteoarthritic change of the right knee, most pronounced of the medial and patellofemoral joint space compartment, where it is moderate. There is a secondary mild varus configuration. 2. No right knee fracture, dislocation or joint effusion is seen. 3. Appropriate alignment of the left total knee arthroplasty, without evidence of complications.
--- NOTE | ~2022-05-22 | XR_ITS ---
EXAMINATION: XR KNEE, RIGHT XR KNEE, LEFT XR KNEE AP STANDING CLINICAL INFORMATION: Pain. COMPARISON: Radiographs dated 05/23/2021. TECHNIQUE: Lateral and axial views of the right knee were obtained. Lateral and axial views of the left knee were obtained. AP bilateral standing view of the knees was obtained. FINDINGS: There is moderate asymmetric narrowing of the medial joint space compartment of the right knee. The right lateral joint space compartment is well-maintained. There is a second. Mild varus configuration. There is moderate narrowing of the patellofemoral compartment. There is tricompartment peripheral osteophyte formation. No fracture, dislocation or joint effusion is seen. There is no foreign body. Prosthetic components of the left total knee arthroplasty are appropriately aligned without periprosthetic fracture or lucency. No component migration. No joint effusion. XR/XR knee RT 2V IMPRESSION: 1. There is tricompartment osteoarthritic change of the right knee, most pronounced of the medial and patellofemoral joint space compartment, where it is moderate. There is a secondary mild varus configuration. 2. No right knee fracture, dislocation or joint effusion is seen. 3. Appropriate alignment of the left total knee arthroplasty, without evidence of complications.
--- NOTE | ~2022-05-22 | XR_ITS ---
EXAMINATION: XR KNEE, RIGHT XR KNEE, LEFT XR KNEE AP STANDING CLINICAL INFORMATION: Pain. COMPARISON: Radiographs dated 05/23/2021. TECHNIQUE: Lateral and axial views of the right knee were obtained. Lateral and axial views of the left knee were obtained. AP bilateral standing view of the knees was obtained. FINDINGS: There is moderate asymmetric narrowing of the medial joint space compartment of the right knee. The right lateral joint space compartment is well-maintained. There is a second. Mild varus configuration. There is moderate narrowing of the patellofemoral compartment. There is tricompartment peripheral osteophyte formation. No fracture, dislocation or joint effusion is seen. There is no foreign body. Prosthetic components of the left total knee arthroplasty are appropriately aligned without periprosthetic fracture or lucency. No component migration. No joint effusion. XR/XR knee LT 2V IMPRESSION: 1. There is tricompartment osteoarthritic change of the right knee, most pronounced of the medial and patellofemoral joint space compartment, where it is moderate. There is a secondary mild varus configuration. 2. No right knee fracture, dislocation or joint effusion is seen. 3. Appropriate alignment of the left total knee arthroplasty, without evidence of complications.
== END 2022-05-22 11:37 | disposition home or self-care (01) ==
LOC: HO.HOSX 11:36
PROVIDERS: Visit Provider Orthopaedic Surgery
DX: Z96.652 Presence of left artificial knee joint (principal); M25.561 Pain in right knee
CPT/HCPCS: 73560; 73565; 99212